=== PATIENT | male | born 1940 | race Caucasian/White ===

== ENCOUNTER 2018-04-22 08:08 | Day surgery (SDC) | payer MEDICARE, BC ==
[~2018-04-22 08:08] MED LIST: Lactated Ringers 1,000 ML IV SCH; Propofol 200 MG/20 ML SDV ONE; Sodium Chloride 0.9% 5 ML Syringe FLUSH PRN; fentaNYL 100 MCG/2 ML SDV ONE
[2018-04-22] MEDS ORDERED: EPINEPHrine 1:10,000 1 MG/10 ML Syringe ONE (08:12)
[2018-04-22] MEDS ORDERED: fentaNYL 100 MCG/2 ML SDV IV ONE (09:22)
[2018-04-22] MEDS ORDERED: Propofol 200 MG/20 ML SDV IV ONE (09:22)
--- NOTE | 2018-04-22 09:44 | PCM.OPNOTE ---
- General Post-Op/Procedure Note Date of Surgery/Procedure: 04/22/18 Operative Procedure(s): Upper gastrointestinal endoscopy Pre Op Diagnosis: Moderately large hiatal hernia without reflux esophagitis is noted. Mild duodenitis is noted. Anesthesia Technique: MAC Primary Surgeon: Gogo Vann Complications: None Condition: Good Free Text/Narrative:: INFORMED CONSENT: Patient is here today for elective upper GI endoscopy. All aspects of this procedure have been discussed with the patient. All possible complications also, including possibility of perforation, infection, pain, bleeding, numbness of the throat, swallowing difficulty and unknown complications. In the event of perforation the patient may need surgical exploration to repair the defect. The patient understands fully well. Patient did not have any further questions for me at the end of my interview. The patient wishes for me to proceed. INSTRUMENT USED: Video gastroscope ANESTHESIA: [[facility]] ASA CLASSIFICATION: [2] PROCEDURE PERFORMED: [Upper gastrointestinal endoscopy] PHARYNX: Normal. ESOPHAGUS: Normal. Proximal: Normal. Middle: Normal. Lower: Normal. GE Junction: Moderate-sized hiatal hernia. STOMACH: Normal. Cardia: Normal. Fundus: Normal. Lesser Curvature: Normal. Greater Curvature: Normal. Antrum: Normal. Pylorus: Normal. DUODENUM: Normal. First Part: Mild duodenitis. Second Part: Normal. Third Part: Normal. RETROFLEXION: Normal. BIOPSY: None. TOLERANCE: Excellent. COMPLICATIONS: None.
== END 2018-04-22 11:57 | disposition home or self-care (01) ==
LOC: KA.SDS 08:08
PROVIDERS: ATTEND Family Medicine
DX: K29.80 Duodenitis without bleeding (principal); K44.9 Diaphragmatic hernia without obstruction or gangrene; I10 Essential (primary) hypertension; E78.5 Hyperlipidemia, unspecified; D64.9 Anemia, unspecified; Z79.82 Long term (current) use of aspirin; Z79.899 Other long term (current) drug therapy
CPT/HCPCS: 00731; J2704; J3010; J7120

== ENCOUNTER 2020-09-06 16:20 | Emergency (ER) | payer MEDICARE, BC ==
[2020-09-06 17:09] VITALS: BP 138/80; PULSE 71
--- NOTE | 2020-09-06 17:15 | EDM.PDOC ---
ED HPI GENERAL MEDICAL PROBLEM - General Chief Complaint: General Stated Complaint: RADICULAPATHY/ARM/NECK PX Time Seen by Provider: 09/06/20 17:04 Source of Information: Reports: Patient History Limitations: Reports: No Limitations - History of Present Illness INITIAL COMMENTS - FREE TEXT/NARRATIVE: Patient presents with pain in left shoulder and neck for the past 6 weeks. To day he went to the chiropractor and after his treatment the pain was worse so came to ER. The pain has mainly been present when sitting in a car and driving but now is more than that. Denies injury. Left Shoulder Pain Score (Numeric/FACES): 9 - Related Data Allergies Allergy/AdvReac Type Severity Reaction Status Date / Time No Known Drug Allergies Allergy NKDA Verified 09/06/20 16:34 Home Meds: Home Meds Acetaminophen [Tylenol Extra Strength] 1,000 mg PO BID 04/21/18 [History] Finasteride 5 mg PO DAILY 04/21/18 [History] Ibuprofen 200 - 400 mg PO DAILY PRN 04/21/18 [History] Multivitamin [Multivitamins] 1 cap PO DAILY 04/21/18 [History] Simvastatin [Zocor] 20 mg PO DAILY 04/21/18 [History] Tamsulosin [Tamsulosin 24 Hr] 0.4 mg PO DAILY 04/21/18 [History] Past Medical History HEENT History: Reports: Cataract Cardiovascular History: Reports: SOB on Exertion Respiratory History: Reports: Other (See Below) Other Respiratory History: Single episode of bronchitis years ago. Gastrointestinal History: Reports: Diverticulosis, Pancreatitis Genitourinary History: Reports: Prostate Disorder Other Genitourinary History: enlarged prostate Musculoskeletal History: Reports: None Neurological History: Reports: None Psychiatric History: Reports: None Endocrine/Metabolic History: Reports: None Hematologic History: Reports: None Immunologic History: Reports: None Oncologic (Cancer) History: Reports: None Dermatologic History: Reports: None - Infectious Disease History Infectious Disease History: Reports: Measles, Mumps - Past Surgical History Head Surgeries/Procedures: Reports: None HEENT Surgical History: Reports: Cataract Surgery Cardiovascular Surgical History: Reports: None Respiratory Surgical History: Reports: None GI Surgical History: Reports: Cholecystectomy Male Surgical History: Reports: None Endocrine Surgical History: Reports: None Neurological Surgical History: Reports: None Musculoskeletal Surgical History: Reports: None Oncologic Surgical History: Reports: None Dermatological Surgical History: Reports: None Social & Family History - Family History HEENT: Reports: None Cardiac: Reports: Heart Failure Respiratory: Reports: None GI: Reports: None Neurological: Reports: Dementia Oncologic: Reports: Prostate, Other (See Below) Other Oncologic Family History: Penile - Brother - Tobacco Use Tobacco Use Status *Q: Never Tobacco User - Caffeine Use Caffeine Use: Reports: Coffee - Recreational Drug Use Recreational Drug Use: No ED ROS GENERAL - Review of Systems Review Of Systems: See Below Constitutional: Denies: Fever, Chills, Weakness HEENT: Reports: No Symptoms Respiratory: Denies: Shortness of Breath, Cough Cardiovascular: Denies: Chest Pain, Lightheadedness, Syncope GI/Abdominal: Reports: No Symptoms : Reports: No Symptoms Musculoskeletal: Reports: Neck Pain, Shoulder Pain, Arm Pain. Denies: Back Pain, Hand Pain, Leg Pain Skin: Reports: No Symptoms Neurological: Reports: Numbness (left fingertips for a year). Denies: Confusion, Dizziness, Headache, Seizure, Syncope, Trouble Speaking, Difficulty Walking Psychiatric: Denies: Agitation, Anxiety, Confusion ED EXAM, GENERAL - Physical Exam Exam: See Below Exam Limited By: No Limitations General Appearance: Alert, WD/WN, No Apparent Distress Eye Exam: Bilateral Eye: EOMI, Normal Inspection, PERRL Ears: Normal External Exam, Hearing Grossly Normal Nose: Normal Inspection, No Blood Throat/Mouth: Normal Inspection, Normal Lips, Normal Voice, No Airway Compromise Head: Atraumatic, Normocephalic Neck: Limited Range of Motion, Tender Lateral, Tender Midline Respiratory/Chest: No Respiratory Distress, Lungs Clear, Normal Breath Sounds, No Accessory Muscle Use Cardiovascular: Regular Rate, Rhythm, No Murmur Back Exam: Normal Inspection Extremities: Normal Range of Motion, Normal Capillary Refill, Other (Palpation and ROM doesn't reproduce pain and is well tolerated. When patient sat on edge of bed and stood up the pain became strong from shoulder to neck from pushing up off the bed.) Neurological: Alert, Oriented, Normal Cognition, No Motor/Sensory Deficits Psychiatric: Normal Affect, Normal Mood Skin Exam: Warm, Dry, Intact, Normal Color, No Rash Course - Vital Signs Last Recorded V/S: Last Vital Signs Temp 97.9 F 09/06/20 16:24 Pulse 65 09/06/20 16:24 Resp 19 09/06/20 16:24 BP 157/90 H 09/06/20 16:24 Pulse Ox 98 09/06/20 16:24 - Orders/Labs/Meds Orders: Active Orders 24 hr Category Date Time Status Shoulder Comp Lt [CR] Stat Exams 09/06/20 16:40 Ordered - Re-Assessments/Exams Free Text/Narrative Re-Assessment/Exam: 09/06/20 17:51 Xrays show significant arthritic changes in C-spine and left shoulder. No acute pathology evident. Patient occasionally takes Ibuprofen 400 mg and is not aware of any kidney disease. I advised taking the ibuprofen 2-3 times a day for just a few days and then follow up with PCP or Ortho for further evaluation and treatment options. He had an MRI of neck about 6 months ago he says that showed arthritis. When he got up to leave he didn't have the pain when pushing himself up from the bed like earlier. He says it feels better. Discharged to home in stable condition. Departure - Departure Time of Disposition: 17:49 Disposition: Home, Self-Care 01 Condition: Good Clinical Impression: Osteoarthritis cervical spine Qualifiers: Spinal osteoarthritis complication: unspecified spinal osteoarthritis Qualified Code(s): M47.812 - Spondylosis without myelopathy or radiculopathy, cervical re gion Osteoarthritis of shoulder Qualifiers: Osteoarthritis type: unspecified Laterality: left Qualified Code(s): M19.012 - Primary osteoarthritis, left shoulder - Discharge Information Instructions: Arthritis, [id number] Referrals: Gogo Vann MD [Primary Care Provider] - Additional Instructions: Drink 8 cups of water daily. Take Ibuprofen 400 mg 2-3 times a day for a few days to see if it helps significantly. Follow up with your PCP or orthopedic doctor in a few days for further evaluation. Sepsis Event Note (ED) - Evaluation Sepsis Screening Result: No Definite Risk - Focused Exam Vital Signs: Vital Signs Temp Pulse Resp BP Pulse Ox 09/06/20 16:24 97.9 F 65 19 157/90 H 98 - My Orders Last 24 Hours: My Active Orders 09/06/20 16:40 Shoulder Comp Lt [CR] Stat - Assessment/Plan Last 24 Hours: My Active Orders 09/06/20 16:40 Shoulder Comp Lt [CR] Stat
--- NOTE | 2020-09-06 17:16 | CR ---
[id number] RAD/RAD Shoulder Left 2V Min EXAM: 3 VIEWS LEFT SHOULDER. INDICATION: PAIN. COMPARISON: None. DISCUSSION: No fracture, dislocation or other acute osseous abnormality. Mild degenerative changes of the left acromioclavicular and glenohumeral joints. IMPRESSION: 1. No acute osseous abnormalities. Chronic changes as above. Wallace Jaramillo DO 09/06/20 1322 Thank you for allowing us to participate in the care of your patient.
--- NOTE | 2020-09-06 17:44 | CR ---
[id number] RAD/RAD Cervical Spine 2-3V EXAM: 2 VIEWS CERVICAL SPINE. INDICATION: PAIN IN NECK AND LEFT SHOULDER/ARM. COMPARISON: None. DISCUSSION: Limited evaluation with AP and lateral views of the cervical spine. The vertebral bodies are normal in height without definite fracture or suspicious osseous lesion seen. 3 mm anterolisthesis of C4 over C5. The prevertebral soft tissues are normal in thickness. Mild multilevel degenerative changes of the cervical spine. Findings are most pronounced at C4-C5 IMPRESSION: 1. When allowing for limitations, no definite acute fracture or dislocation. Wallace Jaramillo DO 09/06/20 1743 Thank you for allowing us to participate in the care of your patient.
== END 2020-09-06 17:55 | disposition home or self-care (01) ==
LOC: KA.ED 16:20
DX: M47.812 Spondylosis without myelopathy or radiculopathy, cervical region (principal); M19.012 Primary osteoarthritis, left shoulder
CPT/HCPCS: 72040; 73030-LT; 99283-25; 99284

== ENCOUNTER 2021-01-13 10:55 | Emergency (ER) | payer MEDICARE, OTHER ==
[2021-01-13] MEDS ORDERED: ALPRAZolam 0.25 MG Tab PO ONE (11:35)
--- NOTE | 2021-01-13 11:49 | EDM.PDOCBH ---
ED HPI GENERAL MEDICAL PROBLEM - General Chief Complaint: Behavioral/Psych Stated Complaint: DIZZY, ANXIETY?? Time Seen by Provider: 01/13/21 11:10 Source of Information: Reports: Patient, Family () History Limitations: Reports: No Limitations - History of Present Illness INITIAL COMMENTS - FREE TEXT/NARRATIVE: 80-year-old male presents to the emergency room accompanied with his with complaints of feeling restless and generalized anxiety. He feels the symptoms have come on gradually over last a couple of days. He had difficulty sleeping at night last night. He feels that this was started due to his recent health and medical findings. He was scheduled to have a hernia repair in October and upon his physical he was diagnosed with a regular heart rate. Ended up having an echocardiogram that showed he had 2 leaky valves. Also found having low platelets and more recently has had a recent tooth infection. He feels that these findings have caused him to worry. He states that he has had issues in the past with claustrophobia. Currently he denies any shortness of breath or chest pain. No headache, no abdominal or musculoskeletal complaints. Again he reports feeling restless and anxious. Onset: Gradual Onset Date: 01/12/21 Duration: Hour(s):, Recurring Location: Reports: Generalized Severity: Moderate Improves with: Reports: None Worsens with: Reports: None Associated Symptoms: Reports: No Other Symptoms - Related Data Allergies Allergy/AdvReac Type Severity Reaction Status Date / Time No Known Drug Allergies Allergy NKDA Verified 01/13/21 11:04 Home Meds: Home Meds Acetaminophen [Tylenol Extra Strength] 1,000 mg PO BID 04/21/18 [History] Finasteride 5 mg PO DAILY 04/21/18 [History] Multivitamin [Multivitamins] 1 cap PO DAILY 04/21/18 [History] Simvastatin [Zocor] 20 mg PO DAILY 04/21/18 [History] Tamsulosin [Tamsulosin 24 Hr] 0.4 mg PO DAILY 04/21/18 [History] ALPRAZolam [Xanax] 0.25 mg PO TID PRN #15 tablet 01/13/21 [Rx] Cholecalciferol (Vitamin D3) [Vitamin D3] 1,000 unit PO DAILY 01/13/21 [History] Cyanocobalamin (Vitamin B12) [Vitamin B12] 1,000 mcg PO DAILY 01/13/21 [History] Ferrous Sulfate [Iron] 325 mg PO DAILY 01/13/21 [History] Past Medical History HEENT History: Reports: Cataract Cardiovascular History: Reports: High Cholesterol, Other (See Below) Other Cardiovascular History: irreg heart beat. needs heart valve repaired Respiratory History: Reports: Other (See Below) Other Respiratory History: Single episode of bronchitis years ago. Gastrointestinal History: Reports: Diverticulosis, Hiatal Hernia, Pancreatitis Other Gastrointestinal History: hernia Genitourinary History: Reports: Prostate Disorder Other Genitourinary History: enlarged prostate Musculoskeletal History: Reports: Arthritis, Neck Pain, Chronic Neurological History: Reports: None Psychiatric History: Reports: Anxiety Endocrine/Metabolic History: Reports: None Hematologic History: Reports: None Immunologic History: Reports: None Oncologic (Cancer) History: Reports: None Dermatologic History: Reports: None - Infectious Disease History Infectious Disease History: Reports: Measles - Past Surgical History Head Surgeries/Procedures: Reports: None HEENT Surgical History: Reports: Cataract Surgery Cardiovascular Surgical History: Reports: None Respiratory Surgical History: Reports: None GI Surgical History: Reports: Cholecystectomy Endocrine Surgical History: Reports: None Neurological Surgical History: Reports: None Musculoskeletal Surgical History: Reports: None Oncologic Surgical History: Reports: None Dermatological Surgical History: Reports: None Social & Family History - Family History HEENT: Reports: None Cardiac: Reports: Heart Failure Respiratory: Reports: None GI: Reports: None Neurological: Reports: Dementia Oncologic: Reports: Prostate, Other (See Below) Other Oncologic Family History: Penile - Brother - Tobacco Use Tobacco Use Status *Q: Never Tobacco User - Caffeine Use Caffeine Use: Reports: Coffee - Recreational Drug Use Recreational Drug Use: No ED ROS GENERAL - Review of Systems Review Of Systems: See Below Constitutional: Reports: No Symptoms HEENT: Reports: No Symptoms Respiratory: Reports: No Symptoms Cardiovascular: Reports: No Symptoms Endocrine: Reports: No Symptoms GI/Abdominal: Reports: No Symptoms : Reports: No Symptoms Musculoskeletal: Reports: No Symptoms Skin: Reports: No Symptoms Neurological: Reports: No Symptoms Psychiatric: Reports: Anxiety Hematologic/Lymphatic: Reports: No Symptoms Immunologic: Reports: No Symptoms ED EXAM, BEHAVIORAL HEALTH - Physical Exam Exam: See Below Exam Limited By: No Limitations General Appearance: Alert, WD/WN, No Apparent Distress, Anxious Eye Exam: Bilateral Eye: EOMI Ears: Hearing Grossly Normal Nose: Normal Inspection Throat/Mouth: Normal Inspection, Normal Voice, No Airway Compromise Head: Atraumatic, Normocephalic Neck: Normal Inspection, Supple, Non-Tender Respiratory/Chest: No Respiratory Distress, Lungs Clear, Normal Breath Sounds Cardiovascular: No Edema, No JVD, Irregularly Irregular GI/Abdominal: Soft, Non-Tender Back Exam: Normal Inspection, Other (Kyphosis) Extremities: Normal Inspection, Normal Range of Motion Neurological: Alert, Normal Cognition, Normal Gait, No Motor/Sensory Deficits, Oriented x 3 Psychiatric: Alert, Depressed Mood, Restless. No: Agitated Skin Exam: Warm, Dry, Intact, Normal color, No rash COURSE, BEHAVIORAL HEALTH COMP - Course Vital Signs: Last Vital Signs Temp 98.5 F 01/13/21 11:07 Pulse 67 01/13/21 11:07 Resp 18 01/13/21 11:07 BP 103/69 01/13/21 11:07 Pulse Ox 96 01/13/21 11:07 Orders, Labs, Meds: Medications Discontinued Medications Generic Name Dose Route Start Last Admin Trade Name Freq PRN Reason Stop Dose Admin Alprazolam 0.5 mg 01/13/21 11:35 01/13/21 11:38 Alprazolam 0.25 Mg Tab PO 01/13/21 11:36 0.5 mg ONETIME ONE Administration Re-Assessment/Re-Exam: Patient is a pleasant cooperative throughout examination he is little bit restless. He has a difficult time just sitting. He expresses worry some due to his recent medical conditions as discussed in his history. He feels he is becoming more anxious, he does complain of some claustrophobic issues that have been throughout his life. Departure - Departure Time of Disposition: 11:50 Disposition: Home, Self-Care 01 Condition: Good Clinical Impression: Anxiety - Discharge Information Prescriptions: ALPRAZolam [Xanax] 0.25 mg PO TID PRN #15 tablet PRN Reason: Anxiety Instructions: Panic Attack, [id number], Managing Anxiety, Adult Referrals: Gogo Vann MD [Primary Care Provider] - Forms: ED Department Discharge Care Plan Goals: 1. Xanax 0.25 mg every 8 hours as needed for anxiety dispense 15 to [facility]. 2. Up with your primary care next week for your anxiety. 3. Turn to the emergency room if you feel your symptoms have changed and began experiencing any increased shortness of breath, chest pain, arm or neck pain. Sepsis Event Note (ED) - Evaluation Sepsis Screening Result: No Definite Risk - Focused Exam Vital Signs: Vital Signs Temp Pulse Resp BP Pulse Ox 01/13/21 11:07 98.5 F 67 18 103/69 96 - Problem List Review Problem List Initiated/Reviewed/Updated: Yes - Assessment/Plan Assessment:: Generalized anxiety Plan: 1. Xanax 0.25 mg every 8 hours as needed for anxiety dispense 15 to [facility]. 2. Up with your primary care next week for your anxiety. 3. Turn to the emergency room if you feel your symptoms have changed and began experiencing any increased shortness of breath, chest pain, arm or neck pain.
== END 2021-01-13 11:48 | disposition home or self-care (01) ==
LOC: KA.ED 10:55
DX: F41.1 Generalized anxiety disorder (principal); E78.00 Pure hypercholesterolemia, unspecified; N42.9 Disorder of prostate, unspecified; Z79.899 Other long term (current) drug therapy
CPT/HCPCS: 99283; 99284; A9270-GY

== ENCOUNTER 2021-01-28 09:59 | Emergency (ER) | payer MEDICARE, OTHER ==
--- NOTE | 2021-01-28 11:13 | EDM.PDOC ---
ED HPI GENERAL MEDICAL PROBLEM - General Chief Complaint: Gastrointestinal Problem Stated Complaint: CONSTIPATED Time Seen by Provider: 01/28/21 10:11 Source of Information: Reports: Patient, Significant Other History Limitations: Reports: No Limitations - History of Present Illness INITIAL COMMENTS - FREE TEXT/NARRATIVE: Patient presents with constipation. His last bowel movement was 3 days ago after taking Dulcolax. He has been managing less regular bowel movements for about the last 6 months but usually goes at least every day. He uses Metamucil, Miralax and now Dulcolax a couple times. He says Miralax doesn't help him at all. He denies pain at the rectum or in the abdomen. He does sometimes take oxycodone for shoulder pain and had a dose two days ago. He also had IV pain medication that day for a cardiac angiogram. - Related Data Allergies Allergy/AdvReac Type Severity Reaction Status Date / Time No Known Drug Allergies Allergy NKDA Verified 01/28/21 10:15 Home Meds: Home Meds Acetaminophen [Tylenol Extra Strength] 1,000 mg PO BID 04/21/18 [History] Finasteride 5 mg PO DAILY 04/21/18 [History] Multivitamin [Multivitamins] 1 cap PO DAILY 04/21/18 [History] Tamsulosin [Tamsulosin 24 Hr] 0.4 mg PO DAILY 04/21/18 [History] ALPRAZolam [Xanax] 0.25 mg PO TID PRN #15 tablet 01/13/21 [Rx] Cholecalciferol (Vitamin D3) [Vitamin D3] 1,000 unit PO DAILY 01/13/21 [History] Cyanocobalamin (Vitamin B12) [Vitamin B12] 1,000 mcg PO DAILY 01/13/21 [History] Ferrous Sulfate [Iron] 325 mg PO DAILY 01/13/21 [History] Aspirin [Aspirin EC] 81 mg PO DAILY 01/28/21 [History] Clopidogrel Bisulfate [Plavix] 75 mg PO DAILY 01/28/21 [History] Nitroglycerin 0.4 mg SL ASDIRECTED 01/28/21 [History] Rosuvastatin [Crestor] 20 mg PO DAILY 01/28/21 [History] Vitamin B Complex 1 each PO DAILY 01/28/21 [History] oxyCODONE 5 mg PO BID PRN 01/28/21 [History] Past Medical History HEENT History: Reports: Cataract Cardiovascular History: Reports: High Cholesterol, Stents, Other (See Below) Other Cardiovascular History: irreg heart beat. needs heart valve repaired Respiratory History: Reports: Other (See Below) Other Respiratory History: Single episode of bronchitis years ago. Gastrointestinal History: Reports: Diverticulosis, Hiatal Hernia, Pancreatitis Other Gastrointestinal History: hernia Genitourinary History: Reports: Prostate Disorder Other Genitourinary History: enlarged prostate Musculoskeletal History: Reports: Arthritis, Neck Pain, Chronic Neurological History: Reports: None Psychiatric History: Reports: Anxiety Endocrine/Metabolic History: Reports: None Hematologic History: Reports: Iron Deficiency Immunologic History: Reports: None Oncologic (Cancer) History: Reports: None Dermatologic History: Reports: None - Infectious Disease History Infectious Disease History: Reports: Measles - Past Surgical History Head Surgeries/Procedures: Reports: None HEENT Surgical History: Reports: Cataract Surgery Cardiovascular Surgical History: Reports: None Respiratory Surgical History: Reports: None GI Surgical History: Reports: Cholecystectomy Male Surgical History: Reports: None Endocrine Surgical History: Reports: None Neurological Surgical History: Reports: None Musculoskeletal Surgical History: Reports: None Oncologic Surgical History: Reports: None Dermatological Surgical History: Reports: None Social & Family History - Family History HEENT: Reports: None Cardiac: Reports: Heart Failure Respiratory: Reports: None GI: Reports: None Neurological: Reports: Dementia Oncologic: Reports: Prostate, Other (See Below) Other Oncologic Family History: Penile - Brother - Tobacco Use Tobacco Use Status *Q: Never Tobacco User Second Hand Smoke Exposure: No - Caffeine Use Caffeine Use: Reports: Coffee - Recreational Drug Use Recreational Drug Use: No ED ROS GENERAL - Review of Systems Review Of Systems: See Below Constitutional: Denies: Fever, Chills, Malaise, Weakness HEENT: Reports: No Symptoms Respiratory: Denies: Shortness of Breath, Cough Cardiovascular: Denies: Chest Pain, Lightheadedness, Syncope GI/Abdominal: Reports: Constipation. Denies: Abdominal Pain, Vomiting : Denies: Dysuria, Flank Pain Musculoskeletal: Reports: Shoulder Pain (chronic) Skin: Denies: Cyanosis, Jaundice, Mottled, Pallor, Diaphoresis Neurological: Denies: Confusion, Dizziness, Headache, Seizure, Syncope, Trouble Speaking, Difficulty Walking Psychiatric: Denies: Agitation, Anxiety, Confusion ED EXAM, GI/ABD - Physical Exam Exam: See Below Exam Limited By: No Limitations General Appearance: Alert, WD/WN, No Apparent Distress Eyes: Bilateral: Normal Appearance, EOMI Ears: Normal External Exam, Hearing Grossly Normal Nose: Normal Inspection, No Blood Throat/Mouth: Normal Inspection, Normal Lips, Normal Voice, No Airway Compromise Head: Atraumatic, Normocephalic Neck: Normal Inspection, Full Range of Motion Respiratory/Chest: No Respiratory Distress, Lungs Clear, Normal Breath Sounds, No Accessory Muscle Use Cardiovascular: Regular Rate, Rhythm, No Murmur GI/Abdominal Exam: Normal Bowel Sounds, Soft, Non-Tender, No Organomegaly, No Distention, No Abnormal Bruit, No Mass. No: Distended, Guarding, Rigid Rectal (Males) Exam: Deferred (he doesn't feel like anything is sitting in the rectum) Back Exam: Normal Inspection, Full Range of Motion Extremities: Normal Inspection, Normal Range of Motion Neurological: Alert, Oriented, Normal Cognition, No Motor/Sensory Deficits Psychiatric: Normal Affect, Normal Mood Skin Exam: Warm, Dry, Intact, Normal Color, No Rash Course - Vital Signs Last Recorded V/S: Last Vital Signs Temp 98.6 F 01/28/21 10:00 Pulse 63 01/28/21 10:22 Resp 16 01/28/21 10:00 BP 132/66 01/28/21 10:22 Pulse Ox 96 01/28/21 10:00 - Re-Assessments/Exams Free Text/Narrative Re-Assessment/Exam: 01/28/21 11:37 Discussed findings and treatment options including Magnesium Citrate and Milk of Magnesia. They will try the Mag Citrate and I cautioned them that if he finds he is needing to use it more often than twice a month he should see his doctor for alternative options. I also encouraged water intake. Discharged to home in stable condition. Departure - Departure Time of Disposition: 10:59 Disposition: Home, Self-Care 01 Condition: Good Clinical Impression: Constipation Qualifiers: Constipation type: unspecified constipation type Qualified Code(s): K59.00 - Constipation, unspecified - Discharge Information Instructions: Constipation, Adult, [id number] Referrals: Gogo Vann MD [Primary Care Provider] - Additional Instructions: Drink 8 cups of water daily. 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 This will take a few hours to work completely. If you find you are needing to use Magnesium Citrate more often than twice a month follow up with your doctor for other treatment options. Continue your metamucil as directed by your PCP. Return to ER as needed. Sepsis Event Note (ED) - Evaluation Sepsis Screening Result: No Definite Risk - Focused Exam Vital Signs: Vital Signs Temp Pulse Resp BP Pulse Ox 01/28/21 10:22 63 132/66 01/28/21 10:00 98.6 F 67 16 166/84 H 96
== END 2021-01-28 11:30 | disposition home or self-care (01) ==
LOC: KA.ED 09:59
DX: K59.00 Constipation, unspecified (principal); E78.00 Pure hypercholesterolemia, unspecified; Z95.5 Presence of coronary angioplasty implant and graft; Z79.82 Long term (current) use of aspirin; Z79.02 Long term (current) use of antithrombotics/antiplatelets; Z79.899 Other long term (current) drug therapy
CPT/HCPCS: 99283

== ENCOUNTER 2021-02-05 07:32 | Emergency (ER) | payer MEDICARE, OTHER ==
--- NOTE | 2021-02-05 08:29 | EDM.PDOC ---
ED HPI GENERAL MEDICAL PROBLEM - General Chief Complaint: Abdominal Pain Stated Complaint: ABD PAIN Time Seen by Provider: 02/05/21 08:16 Source of Information: Reports: Patient, Significant Other History Limitations: Reports: No Limitations - History of Present Illness INITIAL COMMENTS - FREE TEXT/NARRATIVE: Patient presents with constipation. He was here 8 days ago with same problem and has used Mag Citrate, which produced results within 2 hours that day. Since then he has not passed stool without "pushing". Three days ago he took Senna and Milk of Magnesia and passed stool the next day and yesterday (the past 2 days in a row). He isn't producing as much gas as normal. He doesn't feel like there is a fecal impaction at the rectum but is okay with being checked for it. Denies nausea/vomiting. Has been off his oxycodone for about two weeks now which should be helping this. Abdominal Pain Pain Score (Numeric/FACES): 8 - Related Data Allergies Allergy/AdvReac Type Severity Reaction Status Date / Time No Known Drug Allergies Allergy NKDA Verified 02/05/21 07:48 Home Meds: Home Meds Acetaminophen [Tylenol Extra Strength] 1,000 mg PO BID 04/21/18 [History] Finasteride 5 mg PO DAILY 04/21/18 [History] Multivitamin [Multivitamins] 1 cap PO DAILY 04/21/18 [History] Tamsulosin [Tamsulosin 24 Hr] 0.4 mg PO DAILY 04/21/18 [History] ALPRAZolam [Xanax] 0.25 mg PO TID PRN #15 tablet 01/13/21 [Rx] Cholecalciferol (Vitamin D3) [Vitamin D3] 1,000 unit PO DAILY 01/13/21 [History] Cyanocobalamin (Vitamin B12) [Vitamin B12] 1,000 mcg PO DAILY 01/13/21 [History] Ferrous Sulfate [Iron] 325 mg PO DAILY 01/13/21 [History] Aspirin [Aspirin EC] 81 mg PO DAILY 01/28/21 [History] Clopidogrel Bisulfate [Plavix] 75 mg PO DAILY 01/28/21 [History] Nitroglycerin 0.4 mg SL ASDIRECTED PRN 01/28/21 [History] Rosuvastatin [Crestor] 20 mg PO DAILY 01/28/21 [History] Vitamin B Complex 1 each PO DAILY 01/28/21 [History] oxyCODONE 5 mg PO BID PRN 01/28/21 [History] Omeprazole 20 mg PO DAILY 02/05/21 [History] Past Medical History HEENT History: Reports: Cataract Cardiovascular History: Reports: High Cholesterol, Stents, Other (See Below) Other Cardiovascular History: irreg heart beat. needs heart valve repaired scheduled for February 13, 2021 Respiratory History: Reports: Other (See Below) Other Respiratory History: Single episode of bronchitis years ago. Gastrointestinal History: Reports: Diverticulosis, Hiatal Hernia, Pancreatitis, Other (See Below) Other Gastrointestinal History: hernia, constipation Genitourinary History: Reports: Prostate Disorder Other Genitourinary History: enlarged prostate Musculoskeletal History: Reports: Arthritis, Neck Pain, Chronic Neurological History: Reports: None Psychiatric History: Reports: Anxiety Endocrine/Metabolic History: Reports: None Hematologic History: Reports: Iron Deficiency Immunologic History: Reports: None Oncologic (Cancer) History: Reports: None Dermatologic History: Reports: None - Infectious Disease History Infectious Disease History: Reports: Measles - Past Surgical History Head Surgeries/Procedures: Reports: None HEENT Surgical History: Reports: Cataract Surgery Cardiovascular Surgical History: Reports: Coronary Artery Stent, Other (See Below) Other Cardiovascular Surgeries/Procedures: [address] Respiratory Surgical History: Reports: None GI Surgical History: Reports: Cholecystectomy Male Surgical History: Reports: None Endocrine Surgical History: Reports: None Neurological Surgical History: Reports: None Musculoskeletal Surgical History: Reports: None Oncologic Surgical History: Reports: None Dermatological Surgical History: Reports: None Social & Family History - Family History HEENT: Reports: None Cardiac: Reports: Heart Failure Respiratory: Reports: None GI: Reports: None Neurological: Reports: Dementia Oncologic: Reports: Prostate, Other (See Below) Other Oncologic Family History: Penile - Brother - Tobacco Use Tobacco Use Status *Q: Never Tobacco User Second Hand Smoke Exposure: No - Caffeine Use Caffeine Use: Reports: Coffee - Recreational Drug Use Recreational Drug Use: No ED ROS GENERAL - Review of Systems Review Of Systems: See Below Constitutional: Denies: Fever, Weakness HEENT: Reports: No Symptoms Respiratory: Reports: No Symptoms Cardiovascular: Reports: No Symptoms GI/Abdominal: Reports: Abdominal Pain (just a little in left groin where his hernia sometimes gets uncomfortable.), Constipation. Denies: Diarrhea, Nausea, Vomiting : Reports: No Symptoms Musculoskeletal: Reports: No Symptoms Skin: Reports: No Symptoms Neurological: Denies: Confusion, Syncope, Trouble Speaking Psychiatric: Reports: No Symptoms ED EXAM, GI/ABD - Physical Exam Exam: See Below Exam Limited By: No Limitations General Appearance: Alert, WD/WN, No Apparent Distress Eyes: Bilateral: Normal Appearance, EOMI Ears: Normal External Exam, Hearing Grossly Normal Nose: Normal Inspection, No Blood Throat/Mouth: Normal Inspection, Normal Voice, No Airway Compromise Head: Atraumatic, Normocephalic Neck: Normal Inspection, Full Range of Motion Respiratory/Chest: No Respiratory Distress, Lungs Clear, Normal Breath Sounds Cardiovascular: Regular Rate, Rhythm, No Murmur GI/Abdominal Exam: Normal Bowel Sounds, Soft, Tender (low abdomen and left groin. A large left inguinal hernia is palpable and tender. I am unable to reduce it.) Rectal (Males) Exam: Normal Exam, Normal Rectal Tone, Prostate Nodule (likely right prostate nodule; patient gets his annual checkups and PSA is good each year.). No: Black Stool, Fecal Impaction Back Exam: Normal Inspection, Full Range of Motion Extremities: Normal Inspection, Normal Range of Motion Neurological: Alert, Oriented, Normal Cognition, No Motor/Sensory Deficits Psychiatric: Normal Affect, Normal Mood Skin Exam: Warm, Dry, Intact, Normal Color, No Rash Course - Vital Signs Last Recorded V/S: Last Vital Signs Temp 98.4 F 02/05/21 09:34 Pulse 67 02/05/21 09:34 Resp 20 02/05/21 09:34 BP 143/80 H 02/05/21 09:34 Pulse Ox 98 02/05/21 09:34 - Orders/Labs/Meds Labs: Laboratory Tests 02/05/21 02/05/21 Range/Units 08:45 08:45 WBC 5.69 (5.00-10.00) 10^3/uL RBC 4.66 (4.50-6.00) 10^6/uL Hgb 14.5 (13.0-17.0) g/dL Hct 42.7 (40.0-52.0) % MCV 91.6 (82.0-92.0) fL MCH 31.1 H (27.0-31.0) pg MCHC 34.0 (32.0-36.0) g/dL RDW 13.2 (11.5-14.5) % Plt Count 130 L (150-400) 10^3/uL MPV 9.2 (7.4-10.4) fL Immature Gran % (Auto) 0.2 (0.0-5.0) % Neut % (Auto) 76.4 H (50.0-70.0) % Lymph % (Auto) 12.1 L (20.0-40.0) % Bowman % (Auto) 9.5 H (2.0-8.0) % Eos % (Auto) 1.6 (1.0-3.0) % Baso % (Auto) 0.2 (0.0-1.0) % Neut # (Auto) 4.35 (2.50-7.00) 10^3/uL Lymph # (Auto) 0.69 L (1.00-4.00) 10^3/uL Bowman # (Auto) 0.54 (0.10-0.80) 10^3/uL Eos # (Auto) 0.09 L (0.10-0.30) 10^3/uL Baso # (Auto) 0.01 (0.00-0.10) 10^3/uL Immature Gran # (Auto) 0.01 (0.00-0.50) 10^3/uL Sodium 142 (136-145) mmol/L Potassium 4.3 (3.5-5.1) mmol/L Chloride 106 (98-107) mmol/L Carbon Dioxide 27.4 (21.0-32.0) mmol/L Anion Gap 12.9 (5-15) mmol/L BUN 13 (7-18) mg/dL Creatinine 0.98 (0.51-1.17) mg/dL Est Cr Clr Drug Dosing 50.34 mL/min Estimated GFR (MDRD) > 60 mL/min Glucose 99 (70-140) mg/dL Calcium 9.1 (8.7-10.3) mg/dL Total Bilirubin 1.5 H (0.2-1.0) mg/dL AST 34 (15-37) U/L ALT 54 (14-63) U/L Alkaline Phosphatase 37 L (46-116) U/L Total Protein 6.2 L (6.4-8.2) g/dL Albumin 3.54 (3.40-5.00) g/dL Meds: Medications Discontinued Medications Generic Name Dose Route Start Last Admin Trade Name Seven PRN Reason Stop Dose Admin Sodium Chloride 50 mls @ 200 mls/min 02/05/21 09:00 02/05/21 09:38 Normal Saline IV 200 mls/min ASDIRECTED CONSUELO Administration Iopamidol 75 ml 02/05/21 08:48 02/05/21 09:38 Iopamidol 755 Mg/Ml 75 Ml Bottle IVPUSH 02/05/21 08:49 75 ml ONETIME ONE Administration - Re-Assessments/Exams Free Text/Narrative Re-Assessment/Exam: 02/05/21 08:44 After the digital rectal exam, we were discussing long-term management of his constipation and that he should follow up with PCP. Then he mentioned that he has been having "excruciating" low abdominal pain that lasts for a minute then lessens or goes away entirely. This started last evening and worsened through the night. He slept in a recliner but didn't actually sleep much. He is concerned about his hernia. He was planning to have it repaired but during the pre-op workup he was found to need surgery on a cardiac valve first which is scheduled for February 13. The hernia repair is anticipated for about a month later. Patient says he usually can reduce the hernia when laying in bed at night but last night he couldn't and he has never had this much pain from it before. 02/05/21 10:30 CT reports "moderate-sized left inguinal hernia containing a loop of sigmoid colon with evidence of incarceration and obstruction." Just a few minutes ago, after the CT, patient passed a large amount of gas and then was able to reduce the hernia. I re-examined and confirmed that the hernia is reduced. Patient reports pain is gone now. Will discuss with surgeon at [facility] now. 02/05/21 11:01 I discussed case with Dr. Barker, surgeon at [facility]. He said that if incarcerated it would definitely be a surgical emergency but since it has evidently reduced and resolved should wait and proceed with the heart procedure on February 13 and then make plans for the hernia. He told me to instruct patient to come directly to the ER at [facility] if the hernia becomes "stuck" again like it was today. He doesn't want the delay of going to [place] first and definitely wants him in [place] where cardiology can be involved. I discussed these plans in detail with patient and his and he is discharged to home in stable condition. Departure - Departure Time of Disposition: 10:55 Disposition: Home, Self-Care 01 Condition: Good Clinical Impression: Lower abdominal pain, Inguinal hernia, left Constipation Qualifiers: Constipation type: unspecified constipation type Qualified Code(s): K59.00 - Constipation, unspecified - Discharge Information Referrals: Gogo Vann MD [Primary Care Provider] - Forms: ED Department Discharge Additional Instructions: Drink 8 cups of water daily. Try to eat whole grain foods, fresh fruits and vegetables as much as possible to decrease constipation. You can use your Senna morning and night as discussed as well as Milk of Magnesia if needed. Make sure you can reduce the hernia a few times throughout the day. If it becomes "stuck" like it was today, you should go to the ER at [facility]) right away, as we discussed. Sepsis Event Note (ED) - Evaluation Sepsis Screening Result: No Definite Risk - Focused Exam Vital Signs: Vital Signs Temp Pulse Resp BP Pulse Ox 02/05/21 09:34 98.4 F 67 20 143/80 H 98 02/05/21 08:00 61 20 135/86 97 02/05/21 07:53 98.9 F 63 18 145/86 H 98
[2021-02-05] MEDS ORDERED: Iopamidol 755 Mg/ML 75 ML Bottle IVPUSH ONE (08:48)
[2021-02-05] MEDS ORDERED: Sodium Chloride 0.9% 50 ML IV SCH (09:00)
[2021-02-05 09:17] LABS: ANION GAP 12.9 mmol/L (5-15); CHLORIDE,CL 106 mmol/L (98-107); SODIUM,NA 142 mmol/L (136-145)
--- NOTE | 2021-02-05 10:10 | CT ---
[id number] CT/CT Abdomen Pelvis W IV EXAM: ABDOMEN AND PELVIS CT WITH CONTRAST INDICATION: Hernia and low abdominal pain. COMPARISON: October 04, 2010. DISCUSSION: There are clips along the internal inguinal ring suggesting previous hernia repair. There is a recurrent moderate sized hernia containing a segment of sigmoid colon. The colon proximal to this is moderately dilated and there is infiltration of the fat within the hernia sac suggesting incarceration with obstruction. Small free fluid in the pelvis. A 22 x 13 mm fluid collection along the right inguinal canal may be from prior right inguinal hernia repair. Multiple bilateral parapelvic renal cysts. 15 mm cortical cyst left kidney. Scattered diverticula of the colon without evidence of diverticulitis. Prior cholecystectomy. Large hiatus hernia containing the majority of the stomach. Cardiomegaly. Volume loss in the left lung base. Indeterminate 5.5 mm noncalcified nodule in the right lung base (image 3 series 2). The liver, pancreas, spleen, adrenal glands small bowel are unremarkable. The appendix is not identified with certainty. Degenerative changes throughout the spine. The osseous structures are otherwise unremarkable. Moderate prostatomegaly. IMPRESSION: 1. There is a moderate-sized left inguinal hernia containing a loop of sigmoid colon with evidence of incarceration and obstruction. Xu Guy MD 02/05/21 [id number] Thank you for allowing us to participate in the care of your patient.
== END 2021-02-05 11:15 | disposition home or self-care (01) ==
LOC: KA.ED 07:32
DX: K59.00 Constipation, unspecified (principal); K40.90 Unilateral inguinal hernia, without obstruction or gangrene, not specified as recurrent; E78.00 Pure hypercholesterolemia, unspecified; Z95.5 Presence of coronary angioplasty implant and graft; Z79.02 Long term (current) use of antithrombotics/antiplatelets; Z79.899 Other long term (current) drug therapy
CPT/HCPCS: 74177; 80053; 85025; 99284; Q9967; 83615

== ENCOUNTER 2021-02-19 16:46 | Emergency (ER) | payer MEDICARE, OTHER ==
--- NOTE | 2021-02-19 17:52 | EDM.PDOC ---
ED HPI GENERAL MEDICAL PROBLEM - General Chief Complaint: Cardiovascular Problem Stated Complaint: SURGICAL SWELLING Time Seen by Provider: 02/19/21 17:39 Source of Information: Reports: Patient, Significant Other History Limitations: Reports: No Limitations - History of Present Illness INITIAL COMMENTS - FREE TEXT/NARRATIVE: Patient presents with swelling and edema of legs. The right leg is more swollen and tender. Six days ago he had a mitral valve repair that was placed through the right groin. He came home from the hospital 3 days ago and has been walking some each day. He is on aspirin and Plavix but no anticoagulants. He denies any pain in chest or dyspnea. - Related Data Allergies Allergy/AdvReac Type Severity Reaction Status Date / Time No Known Drug Allergies Allergy NKDA Verified 02/19/21 17:32 Home Meds: Home Meds Acetaminophen [Tylenol Extra Strength] 1,000 mg PO BID 04/21/18 [History] Finasteride 5 mg PO DAILY 04/21/18 [History] Multivitamin [Multivitamins] 1 cap PO DAILY 04/21/18 [History] Cholecalciferol (Vitamin D3) [Vitamin D3] 1,000 unit PO DAILY 01/13/21 [History] Cyanocobalamin (Vitamin B12) [Vitamin B12] 1,000 mcg PO DAILY 01/13/21 [History] Ferrous Sulfate [Iron] 325 mg PO DAILY 01/13/21 [History] Aspirin [Aspirin EC] 81 mg PO DAILY 01/28/21 [History] Clopidogrel Bisulfate [Plavix] 75 mg PO DAILY 01/28/21 [History] Nitroglycerin 0.4 mg SL ASDIRECTED PRN 01/28/21 [History] Rosuvastatin [Crestor] 20 mg PO DAILY 01/28/21 [History] oxyCODONE 5 mg PO BID PRN 01/28/21 [History] Omeprazole 20 mg PO DAILY 02/05/21 [History] ALPRAZolam [Xanax] 0.25 mg PO Q8H PRN 02/19/21 [History] Amoxicillin 2,000 mg PO ASDIRECTED PRN 02/19/21 [History] Non-Formulary Medication [NF Drug] 1 applic TOP BID PRN 02/19/21 [History] Tamsulosin HCl [Flomax] 0.8 mg PO DAILY 02/19/21 [History] Past Medical History HEENT History: Reports: Cataract Cardiovascular History: Reports: High Cholesterol, Stents, Other (See Below) Other Cardiovascular History: irreg heart beat. needs heart valve repaired scheduled for February 13, 2021 Respiratory History: Reports: Other (See Below) Other Respiratory History: Single episode of bronchitis years ago. Gastrointestinal History: Reports: Diverticulosis, Hiatal Hernia, Pancreatitis, Other (See Below) Other Gastrointestinal History: hernia, constipation Genitourinary History: Reports: Prostate Disorder Other Genitourinary History: enlarged prostate Musculoskeletal History: Reports: Arthritis, Neck Pain, Chronic Neurological History: Reports: None Psychiatric History: Reports: Anxiety Endocrine/Metabolic History: Reports: None Hematologic History: Reports: Iron Deficiency Immunologic History: Reports: None Oncologic (Cancer) History: Reports: None Dermatologic History: Reports: None - Infectious Disease History Infectious Disease History: Reports: Measles - Past Surgical History Head Surgeries/Procedures: Reports: None HEENT Surgical History: Reports: Cataract Surgery Cardiovascular Surgical History: Reports: Coronary Artery Stent, Other (See Below) Other Cardiovascular Surgeries/Procedures: [address] Respiratory Surgical History: Reports: None GI Surgical History: Reports: Cholecystectomy Male Surgical History: Reports: None Endocrine Surgical History: Reports: None Neurological Surgical History: Reports: None Musculoskeletal Surgical History: Reports: None Oncologic Surgical History: Reports: None Dermatological Surgical History: Reports: None Social & Family History - Family History HEENT: Reports: None Cardiac: Reports: Heart Failure Respiratory: Reports: None GI: Reports: None Neurological: Reports: Dementia Oncologic: Reports: Prostate, Other (See Below) Other Oncologic Family History: Penile - Brother - Tobacco Use Tobacco Use Status *Q: Never Tobacco User Second Hand Smoke Exposure: No - Caffeine Use Caffeine Use: Reports: Coffee - Recreational Drug Use Recreational Drug Use: No ED ROS GENERAL - Review of Systems Review Of Systems: See Below Constitutional: Denies: Fever, Chills, Malaise, Weakness HEENT: Denies: Ear Pain, Throat Pain, Vision Change Respiratory: Denies: Shortness of Breath, Cough Cardiovascular: Denies: Chest Pain, Lightheadedness, Syncope GI/Abdominal: Reports: Constipation (often). Denies: Abdominal Pain, Vomiting : Reports: No Symptoms Musculoskeletal: Reports: No Symptoms Skin: Denies: Cyanosis, Jaundice, Mottled, Pallor, Diaphoresis Neurological: Denies: Confusion, Dizziness, Headache, Seizure, Syncope, Trouble Speaking Psychiatric: Denies: Agitation, Anxiety, Confusion ED EXAM, GENERAL - Physical Exam Exam: See Below Exam Limited By: No Limitations General Appearance: Alert, WD/WN, No Apparent Distress Eye Exam: Bilateral Eye: EOMI, Normal Inspection, PERRL Ears: Normal External Exam, Hearing Grossly Normal Nose: Normal Inspection, No Blood Throat/Mouth: Normal Inspection, Normal Lips, Normal Voice, No Airway Compromise Head: Atraumatic, Normocephalic Neck: Normal Inspection, Full Range of Motion Respiratory/Chest: No Respiratory Distress, Lungs Clear, Normal Breath Sounds, No Accessory Muscle Use Cardiovascular: Regular Rate, Rhythm, No Murmur GI/Abdominal: Soft, Non-Tender, No Organomegaly, No Distention Back Exam: Normal Inspection, Full Range of Motion Extremities: Pedal Edema, Slow Capillary Refill, Other (There is ecchymosis on medial and posterior right leg from groin to mid-calf. This area is moderately indurated and tender to palpation. The right leg has significant edema from the hip to the toes. Right mid-calf and medial thigh are tender to squeeze/palpation. Left ankle and foot have edema.). No: Pop's Sign Neurological: Alert, Oriented, Normal Cognition, No Motor/Sensory Deficits Psychiatric: Normal Affect, Normal Mood Skin Exam: Warm, Dry, Intact Course - Vital Signs Last Recorded V/S: Last Vital Signs Temp 98.3 F 02/19/21 16:55 Pulse 68 02/19/21 18:02 Resp 17 02/19/21 18:02 BP 106/56 L 02/19/21 18:02 Pulse Ox 97 02/19/21 18:02 - Orders/Labs/Meds Orders: Active Orders 24 hr Category Date Time Status ALPRAZolam [Xanax] Med 02/19/21 18:16 Once 0.25 mg PO ONETIME ONE Labs: Laboratory Tests 02/19/21 02/19/21 02/19/21 Range/Units 17:20 17:20 17:20 WBC 5.32 (5.00-10.00) 10^3/uL RBC 3.15 L (4.50-6.00) 10^6/uL Hgb 9.9 L D (13.0-17.0) g/dL Hct 29.5 L (40.0-52.0) % MCV 93.7 H (82.0-92.0) fL MCH 31.4 H (27.0-31.0) pg MCHC 33.6 (32.0-36.0) g/dL RDW 14.0 (11.5-14.5) % Plt Count 161 (150-400) 10^3/uL MPV 9.4 (7.4-10.4) fL Immature Gran % (Auto) 0.4 (0.0-5.0) % Neut % (Auto) 72.8 H (50.0-70.0) % Lymph % (Auto) 14.7 L (20.0-40.0) % [place] % (Auto) 10.2 H (2.0-8.0) % Eos % (Auto) 1.5 (1.0-3.0) % Baso % (Auto) 0.4 (0.0-1.0) % Neut # (Auto) 3.88 (2.50-7.00) 10^3/uL Lymph # (Auto) 0.78 L (1.00-4.00) 10^3/uL [place] # (Auto) 0.54 (0.10-0.80) 10^3/uL Eos # (Auto) 0.08 L (0.10-0.30) 10^3/uL Baso # (Auto) 0.02 (0.00-0.10) 10^3/uL Immature Gran # (Auto) 0.02 (0.00-0.50) 10^3/uL D-Dimer, Quantitative 1370 H (<400) ng/mL Sodium 143 (136-145) mmol/L Potassium 3.9 (3.5-5.1) mmol/L Chloride 106 (98-107) mmol/L Carbon Dioxide 29.3 (21.0-32.0) mmol/L Anion Gap 11.6 (5-15) mmol/L BUN 13 (7-18) mg/dL Creatinine 1.05 (0.51-1.17) mg/dL Est Cr Clr Drug Dosing 46.98 mL/min Estimated GFR (MDRD) > 60 mL/min Glucose 103 (70-140) mg/dL Calcium 8.7 (8.7-10.3) mg/dL Total Bilirubin 1.3 H (0.2-1.0) mg/dL AST 23 (15-37) U/L ALT 31 (14-63) U/L Alkaline Phosphatase 31 L (46-116) U/L B-Natriuretic Peptide 53 (0-100) pg/mL Total Protein 5.6 L (6.4-8.2) g/dL Albumin 3.16 L (3.40-5.00) g/dL - Re-Assessments/Exams Free Text/Narrative Re-Assessment/Exam: 02/19/21 18:20 D-dimer is 1370 increasing likelihood of my suspicion of DVT in RLE. Discussed findings and recommendations with patient and they are okay with going to [place] for US and further evaluation and treatment of likely DVT. Patient is stable and continues without any chest pain or dyspnea. He would like a dose of Xanax 0.25 mg for the trip as he uses it occasionally for anxiety. I called [facility] and discussed case with coordinator who relayed info to Dr. Hutson, ER who accepted patient for transfer without further discussion. Departure - Departure Time of Disposition: 18:15 Disposition: DC/Tfer to Acute Hospital 02 Reason for Transfer *Q: Other Condition: Good Clinical Impression: Elevated d-dimer, Swelling of right lower extremity, Suspected DVT (deep vein thrombosis) Referrals: David Espinosa [facility]IC [Primary Care Provider] - Forms: ED Department Discharge Sepsis Event Note (ED) - Evaluation Sepsis Screening Result: No Definite Risk - Focused Exam Vital Signs: Vital Signs Temp Pulse Resp BP Pulse Ox 02/19/21 18:02 68 17 106/56 L 97 02/19/21 16:55 98.3 F 72 14 123/65 97 - My Orders Last 24 Hours: My Active Orders 02/19/21 18:16 ALPRAZolam [Xanax] 0.25 mg PO ONETIME ONE - Assessment/Plan Last 24 Hours: My Active Orders 02/19/21 18:16 ALPRAZolam [Xanax] 0.25 mg PO ONETIME ONE
[2021-02-19 17:53] LABS: ANION GAP 11.6 mmol/L (5-15); CHLORIDE,CL 106 mmol/L (98-107); SODIUM,NA 143 mmol/L (136-145)
[2021-02-19] MEDS ORDERED: ALPRAZolam 0.25 MG Tab PO ONE (18:16)
[2021-02-19] MEDS ORDERED: ALPRAZolam 0.25 MG Tab ONE (18:22)
== END 2021-02-19 18:50 ==
LOC: KA.ED 16:46
DX: M79.89 Other specified soft tissue disorders (principal); R79.89 Other specified abnormal findings of blood chemistry; Z79.82 Long term (current) use of aspirin; Z79.02 Long term (current) use of antithrombotics/antiplatelets; Z95.5 Presence of coronary angioplasty implant and graft
CPT/HCPCS: 36415; 80053; 83880; 85025; 85379; 99284; 99285; A9270-GY

== ENCOUNTER 2021-02-21 16:55 | Emergency (ER) | payer MEDICARE, OTHER ==
--- NOTE | 2021-02-21 17:07 | EDM.PDOC ---
ED HPI GENERAL MEDICAL PROBLEM - General Chief Complaint: Genitourinary Problem Stated Complaint: URINARY CATHETER PROBLEMS Time Seen by Provider: 02/21/21 17:04 Source of Information: Reports: Patient History Limitations: Reports: No Limitations - History of Present Illness INITIAL COMMENTS - FREE TEXT/NARRATIVE: Brian, 80-year-old male, presents to the emergency department accompanied by his with complaint of leakage of his Enriquez catheter. This was placed after a mitral clip procedure 1 week ago at [facility] in [place]. Urinary retention was done noted post procedure and was consulted by urology and Enriquez catheter was placed for the interim as there was no proven factor other than a combination of medication, anesthesia services and medication, constipation, as well as procedural issues. He has done well with this until today after reclined in his chair noted some leakage at the meatus around the catheter. They have had adequate urine color and output with no major concerns until this event today. He denies any pains or spasm to his bladder. Incidental diagnosis of DVT to the right lower extremity was diagnosed on the at which time he was placed on Xarelto in conjunction to his previous aspirin and Plavix. He presents here for evaluation as he is new to the realm of an indwelling catheter. He denies fever chills or other factors with noted edema to the right lower extremity which is secondary of his DVT. Onset: Today Lower Abdomen Pain Score (Numeric/FACES): 4 - Related Data Allergies Allergy/AdvReac Type Severity Reaction Status Date / Time No Known Drug Allergies Allergy NKDA Verified 02/19/21 17:32 Home Meds: Home Meds Acetaminophen [Tylenol Extra Strength] 1,000 mg PO DAILY 04/21/18 [History] Finasteride 5 mg PO DAILY 04/21/18 [History] Multivitamin [Multivitamins] 1 cap PO DAILY 04/21/18 [History] Cholecalciferol (Vitamin D3) [Vitamin D3] 1,000 unit PO DAILY 01/13/21 [History] Cyanocobalamin (Vitamin B12) [Vitamin B12] 250 mcg PO DAILY 01/13/21 [History] Ferrous Sulfate [Iron] 325 mg PO DAILY 01/13/21 [History] Aspirin [Aspirin EC] 81 mg PO DAILY 01/28/21 [History] Clopidogrel Bisulfate [Plavix] 75 mg PO DAILY 01/28/21 [History] Nitroglycerin 0.4 mg SL ASDIRECTED PRN 01/28/21 [History] Rosuvastatin [Crestor] 20 mg PO DAILY 01/28/21 [History] oxyCODONE 5 mg PO BID PRN 01/28/21 [History] Omeprazole 20 mg PO DAILY 02/05/21 [History] ALPRAZolam [Xanax] 0.25 mg PO Q8H PRN 02/19/21 [History] Amoxicillin 2,000 mg PO ASDIRECTED PRN 02/19/21 [History] Non-Formulary Medication [NF Drug] 1 applic TOP BID PRN 02/19/21 [History] Tamsulosin HCl [Flomax] 0.8 mg PO DAILY 02/19/21 [History] Past Medical History HEENT History: Reports: Cataract Cardiovascular History: Reports: High Cholesterol, Stents, Other (See Below) Other Cardiovascular History: irreg heart beat. needs heart valve repaired scheduled for February 13, 2021 Respiratory History: Reports: Other (See Below) Other Respiratory History: Single episode of bronchitis years ago. Gastrointestinal History: Reports: Diverticulosis, Hiatal Hernia, Pancreatitis, Other (See Below) Other Gastrointestinal History: hernia, constipation Genitourinary History: Reports: Prostate Disorder Other Genitourinary History: enlarged prostate Musculoskeletal History: Reports: Arthritis, Neck Pain, Chronic Neurological History: Reports: None Psychiatric History: Reports: Anxiety Endocrine/Metabolic History: Reports: None Hematologic History: Reports: Iron Deficiency Immunologic History: Reports: None Oncologic (Cancer) History: Reports: None Dermatologic History: Reports: None - Infectious Disease History Infectious Disease History: Reports: Measles - Past Surgical History Head Surgeries/Procedures: Reports: None HEENT Surgical History: Reports: Cataract Surgery Cardiovascular Surgical History: Reports: Coronary Artery Stent, Other (See Below) Other Cardiovascular Surgeries/Procedures: [address] Respiratory Surgical History: Reports: None GI Surgical History: Reports: Cholecystectomy Male Surgical History: Reports: None Endocrine Surgical History: Reports: None Neurological Surgical History: Reports: None Musculoskeletal Surgical History: Reports: None Oncologic Surgical History: Reports: None Dermatological Surgical History: Reports: None Social & Family History - Family History HEENT: Reports: None Cardiac: Reports: Heart Failure Respiratory: Reports: None GI: Reports: None Neurological: Reports: Dementia Oncologic: Reports: Prostate, Other (See Below) Other Oncologic Family History: Penile - Brother - Caffeine Use Caffeine Use: Reports: Coffee ED ROS GENERAL - Review of Systems Review Of Systems: Comprehensive ROS is negative, except as noted in HPI. ED EXAM, GENERAL - Physical Exam Exam: See Below Free Text/Narrative:: Alert oriented in no distress. HEENT is benign. Thorax is clear Cardiac is regular Abdomen is soft bowel sounds are present. No distension is noted to the urinary bladder, no pain or pressure to palpation and pressure. There is significant ecchymosis to the right groin and perineum including the scrotum and penis. Medial thigh involved. Enriquez catheter is in place and appears intact with no drainage or irritation around the meatus. Catheter is draining with no evidence of clot formation with fine granular appearance in the urine. Leg bag has roughly 250 to 300 mL present with no clot material present. They state this is typical coloration, may be slightly darker but not as dark as what they were warned it was going to be. Significant edema to the right lower extremity from the hip all the way down secondary of his diagnosis of DVT. Ecchymotic presentation Rt lower extremity is possibly worsening secondary of being placed on Xarelto in conjunction to his Plavix and aspirin this past Friday. Motion to the extremity is intact with leg bag attached to the anterior surface of his right distal tib-fib. There appears that there may be a slight kink in his tubing as his pants he was wearing was slightly tight compressing the bag as it gained fluid. Bladder scan performed per nursing staff 272 mL. We were able to straighten tubing and get urine drainage. There did seem to be some sort of a mild obstruction in the leg bag itself which has been taped in place for their security. Tape was removed bag was removed and changed to a new leg bag from our stock and seemingly draining appropriate with no concerns or discomfort. NO clot material noted. Again with assessment over the urinary bladder there is no mass no pressure nor fullness appreciated. Course - Vital Signs Last Recorded V/S: Last Vital Signs Temp 98.5 F 02/21/21 17:08 Pulse 71 02/21/21 17:08 Resp 20 02/21/21 17:08 BP 113/63 02/21/21 17:08 Pulse Ox 98 02/21/21 17:08 - Orders/Labs/Meds Orders: Active Orders 24 hr Category Date Time Status Bladder Scan [RC] ASDIRECTED Care 02/21/21 17:15 Active - Re-Assessments/Exams Free Text/Narrative Re-Assessment/Exam: 02/21/21 18:06 After leg bag changed draining appropriately reassessed to find no discomfort or concerns. Departure - Departure Time of Disposition: 18:14 Disposition: Home, Self-Care 01 Condition: Good Clinical Impression: Swelling of right lower extremity, Retention of urine due to occlusion of Enriquez catheter - Discharge Information *PRESCRIPTION DRUG MONITORING PROGRAM REVIEWED*: Not Applicable *COPY OF PRESCRIPTION DRUG MONITORING REPORT IN PATIENT BETTY: Not Applicable Referrals: Gogo Vann MD [Primary Care Provider] - Forms: ED Department Discharge Additional Instructions: Make sure to continue drinking plenty of fluids to reduce the concentration of your urine. Continue all your medications as directed. Make sure you always have the bag, whether it is a leg bag or the large bag at least the distance of the bag below your pelvis. If you are seated with your legs elevated you need to remove the leg bag and have it to your side below the level of the bed. The leakage is likely caused from backing up of the urine from the kink in the tubing as it seems to be flow flowing fine after we replaced the bag. Follow-up with your urologist or clinic as needed and scheduled, or return to the emergency department if concerns develop outside of clinic hours. Sepsis Event Note (ED) - Focused Exam Vital Signs: Vital Signs Temp Pulse Resp BP Pulse Ox 02/21/21 17:08 98.5 F 71 20 113/63 98 - Problem List & Annotations (1) Retention of urine due to occlusion of Enriquez catheter SNOMED Code(s): 318919117 Code(s): T83.198A - [facility] COMPL OF OTH URINARY DEVICES AND IMPLANTS, INIT ENCNTR; R33.8 - OTHER RETENTION OF URINE Status: Acute Priority: High Current Visit: Yes Annotation/Comment:: Catheter is patent its appears there was a kink in the tubing as well as his history of slight elevation of the leg back this afternoon. - Problem List Review Problem List Initiated/Reviewed/Updated: Yes - My Orders Last 24 Hours: My Active Orders 02/21/21 17:15 Bladder Scan [RC] ASDIRECTED - Assessment/Plan Last 24 Hours: My Active Orders 02/21/21 17:15 Bladder Scan [RC] ASDIRECTED Plan: Make sure to continue drinking plenty of fluids to reduce the concentration of your urine. Continue all your medications as directed. Make sure you always have the bag, whether it is a leg bag or the large bag at least the distance of the bag below your pelvis. If you are seated with your legs elevated you need to remove the leg bag and have it to your side below the level of the bed. The leakage is likely caused from backing up of the urine from the kink in the tubing as it seems to be flow flowing fine after we replaced the bag. Follow-up with your urologist or clinic as needed and scheduled, or return to the emergency department if concerns develop outside of clinic hours.
== END 2021-02-21 18:45 | disposition home or self-care (01) ==
LOC: KA.ED 16:55
DX: T83.091A Other mechanical complication of indwelling urethral catheter, initial encounter (principal); E78.00 Pure hypercholesterolemia, unspecified; R33.9 Retention of urine, unspecified; M79.89 Other specified soft tissue disorders; Z79.899 Other long term (current) drug therapy
CPT/HCPCS: 99284; 99284-25

== ENCOUNTER 2021-03-03 16:50 | Emergency (ER) | payer MEDICARE, OTHER ==
--- NOTE | 2021-03-03 17:10 | EDM.PDOC ---
ED HPI GENERAL MEDICAL PROBLEM - General Chief Complaint: Eye Problems Stated Complaint: BLOOD IN EYE Time Seen by Provider: 03/03/21 16:58 Source of Information: Reports: Patient History Limitations: Reports: No Limitations - History of Present Illness INITIAL COMMENTS - FREE TEXT/NARRATIVE: 80 YO WM PRESENTS TO ER COMPLAINING OF LEFT EYE SUBCONJUNCTIVAL HEMORRHAGE WHICH BEGAN YESTERDAY. PT REPORTS HE WAS SEEN IN CLINIC AND DIAGNOSED WITH SUBCONJUNCTIVAL HEMORRHAGE AND GIVEN SOME EYE LUBRICATION DROPS. PT REPORTS HE WOKE THIS AM WITH BRUISING TO HIS LOWER EYE LID AND WORSENING HEMORRHAGE IN LEFT EYE PROMPTING CONCERN AND ER EVALUATION. PT IS CURRENTLY TAKING XARELTO, AND PLAVIX SECONDARY TO RECENT CARDIAC STENT PLACEMENT. PT DENIES ANY HEADACHE, EYE PAIN OR VISUAL CHANGES. PT REPORTS NO PROBLEMS WITH HIS BLOOD PRESSURE FAR HE KNOWS AND HIS BLOOD PRESSURE AT CLINIC WAS 110/70. Onset Date: 03/02/21 Duration: Day(s): (1) Location: Reports: Face Severity: Mild Improves with: Reports: None Worsens with: Reports: None Associated Symptoms: Reports: No Other Symptoms - Related Data Allergies Allergy/AdvReac Type Severity Reaction Status Date / Time No Known Drug Allergies Allergy NKDA Verified 03/03/21 17:25 Home Meds: Home Meds Acetaminophen [Tylenol Extra Strength] 1,000 mg PO DAILY 04/21/18 [History] Finasteride 5 mg PO DAILY 04/21/18 [History] Multivitamin [Multivitamins] 1 cap PO DAILY 04/21/18 [History] Cholecalciferol (Vitamin D3) [Vitamin D3] 1,000 unit PO DAILY 01/13/21 [History] Cyanocobalamin (Vitamin B12) [Vitamin B12] 250 mcg PO DAILY 01/13/21 [History] Ferrous Sulfate [Iron] 325 mg PO DAILY 01/13/21 [History] Aspirin [Aspirin EC] 81 mg PO DAILY 01/28/21 [History] Clopidogrel Bisulfate [Plavix] 75 mg PO DAILY 01/28/21 [History] Nitroglycerin 0.4 mg SL ASDIRECTED PRN 01/28/21 [History] Rosuvastatin [Crestor] 20 mg PO DAILY 01/28/21 [History] oxyCODONE 5 mg PO BID PRN 01/28/21 [History] Omeprazole 20 mg PO DAILY 02/05/21 [History] ALPRAZolam [Xanax] 0.25 mg PO Q8H PRN 02/19/21 [History] Amoxicillin 2,000 mg PO ASDIRECTED PRN 02/19/21 [History] Non-Formulary Medication [NF Drug] 1 applic TOP BID PRN 02/19/21 [History] Tamsulosin HCl [Flomax] 0.8 mg PO DAILY 02/19/21 [History] Past Medical History HEENT History: Reports: Cataract Cardiovascular History: Reports: High Cholesterol, Stents, Other (See Below) Other Cardiovascular History: irreg heart beat. needs heart valve repaired sche duled for February 13, 2021 Respiratory History: Reports: Other (See Below) Other Respiratory History: Single episode of bronchitis years ago. Gastrointestinal History: Reports: Diverticulosis, Hiatal Hernia, Pancreatitis, Other (See Below) Other Gastrointestinal History: hernia, constipation Genitourinary History: Reports: Prostate Disorder Other Genitourinary History: enlarged prostate Musculoskeletal History: Reports: Arthritis, Neck Pain, Chronic Neurological History: Reports: None Psychiatric History: Reports: Anxiety Endocrine/Metabolic History: Reports: None Hematologic History: Reports: Iron Deficiency Immunologic History: Reports: None Oncologic (Cancer) History: Reports: None Dermatologic History: Reports: None - Infectious Disease History Infectious Disease History: Reports: Measles - Past Surgical History Head Surgeries/Procedures: Reports: None HEENT Surgical History: Reports: Cataract Surgery Cardiovascular Surgical History: Reports: Coronary Artery Stent, Other (See Below) Other Cardiovascular Surgeries/Procedures: [address] Respiratory Surgical History: Reports: None GI Surgical History: Reports: Cholecystectomy Male Surgical History: Reports: None Endocrine Surgical History: Reports: None Neurological Surgical History: Reports: None Musculoskeletal Surgical History: Reports: None Oncologic Surgical History: Reports: None Dermatological Surgical History: Reports: None Social & Family History - Family History HEENT: Reports: None Cardiac: Reports: Heart Failure Respiratory: Reports: None GI: Reports: None Neurological: Reports: Dementia Oncologic: Reports: Prostate, Other (See Below) Other Oncologic Family History: Penile - Brother - Caffeine Use Caffeine Use: Reports: Coffee ED ROS GENERAL - Review of Systems Review Of Systems: See Below Constitutional: Reports: No Symptoms HEENT: Reports: Eye Pain Respiratory: Reports: No Symptoms Cardiovascular: Reports: No Symptoms Endocrine: Reports: No Symptoms GI/Abdominal: Reports: No Symptoms : Reports: No Symptoms Musculoskeletal: Reports: No Symptoms Skin: Reports: No Symptoms Neurological: Reports: No Symptoms Psychiatric: Reports: No Symptoms Hematologic/Lymphatic: Reports: No Symptoms ED EXAM GENERAL W FULL EYE - Physical Exam Exam: See Below Exam Limited By: No Limitations General Appearance: Alert, WD/WN, No Apparent Distress Eye Exam: Bilateral Eye: EOMI, PERRL Visual Acuity (R) 20/: 50 Visual Acuity (L) 20/: 70 With Correction: No Eyelids: Right: Erythema, Left: Normal Appearance Conjunctiva & Sclera: Right: Subconjuctival Hemorrhage, Left: Normal Appearance Cornea Exam: Bilateral: Normal Appearance Pupillary Reaction: Bilateral: Brisk Anterior Chamber: Right: Hyphema, Left: Normal Appearance Posterior Chamber: Right: Hemorrhage, Left: Normal Funduscopic Head: Atraumatic, Normocephalic Neck: Normal Inspection, Supple, Non-Tender, Full Range of Motion Respiratory/Chest: No Respiratory Distress, Lungs Clear, Normal Breath Sounds, No Accessory Muscle Use, Chest Non-Tender Cardiovascular: Normal Peripheral Pulses, Regular Rate, Rhythm, No Edema, No Gallop, No JVD, No Murmur, No Rub GI/Abdominal: Normal Bowel Sounds, Soft, Non-Tender, No Organomegaly, No Dis tention, No Abnormal Bruit, No Mass Back Exam: Normal Inspection, Full Range of Motion, NT Extremities: Normal Inspection, Normal Range of Motion, Non-Tender, Normal Capillary Refill, No Pedal Edema Neurological: Alert, Oriented, CN II-XII Intact, Normal Cognition, Normal Gait, Normal Reflexes, No Motor/Sensory Deficits Psychiatric: Normal Affect, Normal Mood Skin Exam: Warm, Dry, Intact, Normal Color, No Rash Lymphatic: No Adenopathy Course - Vital Signs Last Recorded V/S: Last Vital Signs Temp 97.6 F 03/03/21 17:00 Pulse 69 03/03/21 17:00 Resp 20 03/03/21 17:00 BP 113/65 03/03/21 17:00 Pulse Ox 96 03/03/21 17:00 - Orders/Labs/Meds Orders: Active Orders 24 hr Category Date Time Status Visual Acuity [Vision Test] [RC] ASDIRECTED Care 03/03/21 16:57 Active Departure - Departure Time of Disposition: 17:52 Disposition: Home, Self-Care 01 Condition: Good Clinical Impression: Subconjunctival hemorrhage of left eye - Discharge Information Instructions: Subconjunctival Hemorrhage Forms: ED Department Discharge Additional Instructions: 1. DISCHARGE HOME 2. DISCUSSED CASE WITH [facility] PT TO FOLLOW UP IN OFFICE ON FRIDAY FOR RECHECK 3. AVOID LIFTING OR STRAINING 4. ICE TO EYE NEEDED 5. RETURN TO ER FOR WORSENING SYMPTOMS Sepsis Event Note (ED) - Focused Exam Vital Signs: Vital Signs Temp Pulse Resp BP Pulse Ox 03/03/21 17:00 97.6 F 69 20 113/65 96 - My Orders Last 24 Hours: My Active Orders 03/03/21 16:57 Visual Acuity [Vision Test] [RC] ASDIRECTED - Assessment/Plan Last 24 Hours: My Active Orders 03/03/21 16:57 Visual Acuity [Vision Test] [RC] ASDIRECTED Assessment:: 1. LEFT SUBCONJUNCTIVAL HEMORRHAGE 2. LEFT LOWER LID ECCHYMOSIS Plan: 1. DISCHARGE HOME 2. DISCUSSED CASE WITH [facility] PT TO FOLLOW UP IN OFFICE ON FRIDAY FOR RECHECK 3. AVOID LIFTING OR STRAINING 4. ICE TO EYE NEEDED 5. RETURN TO ER FOR WORSENING SYMPTOMS
== END 2021-03-03 18:18 | disposition home or self-care (01) ==
LOC: KA.ED 16:50
DX: H11.32 Conjunctival hemorrhage, left eye (principal); E78.00 Pure hypercholesterolemia, unspecified; Z79.82 Long term (current) use of aspirin; Z79.02 Long term (current) use of antithrombotics/antiplatelets; Z95.5 Presence of coronary angioplasty implant and graft
CPT/HCPCS: 99283

== ENCOUNTER 2021-04-09 18:48 | Emergency (ER) | payer MEDICARE, OTHER ==
--- NOTE | 2021-04-09 18:54 | EDM.PDOC ---
ED HPI GENERAL MEDICAL PROBLEM - General Chief Complaint: Trauma Stated Complaint: BIT TONGUE Time Seen by Provider: 04/09/21 18:54 Source of Information: Reports: Patient, Family - History of Present Illness INITIAL COMMENTS - FREE TEXT/NARRATIVE: Brina, 80-year-old male, presents along with his after he was enjoying an apple at roughly 1630 hrs. today when he bit his tongue. He denied any issues with it until his saw blood-tinged lips and asked him what it happened. They then evaluated at and presented to the emergency department for a puncture wound to the left side tip of the tongue. His states to me that throughout the day he has been struggling with his bowels as usual and was able to get some of it worked out but has been having some cramping sensation since then. States more comfortable with the ball at the time of the arrival here for the tongue bleeding. Unfortunately he is on anticoagulation therapy as well as Plavix making this a pressure only situation for control. I explained that this is not suturable nor able to be cauterized as it is a puncture wound and that if I attempt to suture and ligate the bleed I will be putting 2 more holes in that would increase the bleeding as well. His anticoagulation cannot be stopped or reversed immediately to get hemostasis as it would then be placing him it additional risk for clotting issues. Onset: Today Duration: Hour(s): - Related Data Allergies Allergy/AdvReac Type Severity Reaction Status Date / Time No Known Drug Allergies Allergy NKDA Verified 04/09/21 19:20 Home Meds: Home Meds Acetaminophen [Tylenol Extra Strength] 1,000 mg PO DAILY 04/21/18 [History] Finasteride 5 mg PO DAILY 04/21/18 [History] Multivitamin [Multivitamins] 1 cap PO DAILY 04/21/18 [History] Cholecalciferol (Vitamin D3) [Vitamin D3] 1,000 unit PO DAILY 01/13/21 [History] Cyanocobalamin (Vitamin B12) [Vitamin B12] 250 mcg PO DAILY 01/13/21 [History] Ferrous Sulfate [Iron] 325 mg PO DAILY 01/13/21 [History] Aspirin [Aspirin EC] 81 mg PO DAILY 01/28/21 [History] Clopidogrel Bisulfate [Plavix] 75 mg PO DAILY 01/28/21 [History] Nitroglycerin 0.4 mg SL ASDIRECTED PRN 01/28/21 [History] Rosuvastatin [Crestor] 20 mg PO DAILY 01/28/21 [History] oxyCODONE 5 mg PO BID PRN 01/28/21 [History] Omeprazole 20 mg PO DAILY 02/05/21 [History] ALPRAZolam [Xanax] 0.25 mg PO Q8H PRN 02/19/21 [History] Amoxicillin 2,000 mg PO ASDIRECTED PRN 02/19/21 [History] Non-Formulary Medication [NF Drug] 1 applic TOP BID PRN 02/19/21 [History] Tamsulosin HCl [Flomax] 0.8 mg PO DAILY 02/19/21 [History] Past Medical History HEENT History: Reports: Cataract Cardiovascular History: Reports: High Cholesterol, Stents, Other (See Below) Other Cardiovascular History: irreg heart beat. needs heart valve repaired scheduled for February 13, 2021 Respiratory History: Reports: Other (See Below) Other Respiratory History: Single episode of bronchitis years ago. Gastrointestinal History: Reports: Diverticulosis, Hiatal Hernia, Pancreatitis, Other (See Below) Other Gastrointestinal History: hernia, constipation Genitourinary History: Reports: Prostate Disorder Other Genitourinary History: enlarged prostate Musculoskeletal History: Reports: Arthritis, Neck Pain, Chronic Neurological History: Reports: None Psychiatric History: Reports: Anxiety Endocrine/Metabolic History: Reports: None Hematologic History: Reports: Iron Deficiency Immunologic History: Reports: None Oncologic (Cancer) History: Reports: None Dermatologic History: Reports: None - Infectious Disease History Infectious Disease History: Reports: Measles - Past Surgical History Head Surgeries/Procedures: Reports: None HEENT Surgical History: Reports: Cataract Surgery Cardiovascular Surgical History: Reports: Coronary Artery Stent, Other (See Below) Other Cardiovascular Surgeries/Procedures: [address] Respiratory Surgical History: Reports: None GI Surgical History: Reports: Cholecystectomy Male Surgical History: Reports: None Endocrine Surgical History: Reports: None Neurological Surgical History: Reports: None Musculoskeletal Surgical History: Reports: None Oncologic Surgical History: Reports: None Dermatological Surgical History: Reports: None Social & Family History - Family History Family Medical History: No Pertinent Family History HEENT: Reports: None Cardiac: Reports: Heart Failure Respiratory: Reports: None GI: Reports: None Neurological: Reports: Dementia Oncologic: Reports: Prostate, Other (See Below) Other Oncologic Family History: Penile - Brother - Caffeine Use Caffeine Use: Reports: Coffee ED ROS GENERAL - Review of Systems Review Of Systems: Comprehensive ROS is negative, except as noted in HPI. ED EXAM, GENERAL - Physical Exam Exam: See Below Free Text/Narrative:: Alert oriented and in no major distress. He acknowledges some abdominal pressure as he is cramping and has gas moving that he states is only able to pass when seated on toilet. HEENT shows a puncture wound to the left anterior tip of the tongue which bleeding is controlled with direct pressure but has formed a small hematoma. It is not a through and through with only the dorsal surface showing the puncture. There is no other irritation in his mouth. Is nonlabored respirations with active bowel sounds and a cramping sensation to the abdomen. He moves his extremities about with no significant discomfort +1 edema in the lower extremities. Course - Vital Signs Last Recorded V/S: Last Vital Signs Temp 98.7 F 04/09/21 18:50 Pulse 56 L 04/09/21 18:50 Resp 20 04/09/21 18:50 BP 136/71 04/09/21 18:50 Pulse Ox 97 04/09/21 18:50 - Orders/Labs/Meds Orders: Active Orders 24 hr Category Date Time Status Abdomen 2V AP Upright Decub [CR] Stat Exams 04/09/21 19:18 Ordered - Re-Assessments/Exams Free Text/Narrative Re-Assessment/Exam: 04/09/21 20:49 bleeding controlled for the past 35 minutes. Radiology report confirms no acute abdominal issues. Departure - Departure Time of Disposition: 20:53 Disposition: Home, Self-Care 01 Condition: Good Clinical Impression: Puncture wound of tongue Qualifiers: Encounter type: initial encounter Qualified Code(s): S01.532A - Puncture wound without foreign body of oral cavity, initial encounter - Discharge Information *PRESCRIPTION DRUG MONITORING PROGRAM REVIEWED*: Not Applicable *COPY OF PRESCRIPTION DRUG MONITORING REPORT IN PATIENT BETTY: Not Applicable Referrals: David Espinosa [facility] [Primary Care Provider] - Forms: ED Department Discharge Additional Instructions: You need to avoid any rough or hot foods to reduce the risk of bleeding r ecurring to the tongue. If bleeding starts ooze after you leave the facility, clamp direct pressure with your fingers as you have been doing here in the emergency department. Continue your bowel program and hopefully will be able to pass the remainder of that gas being coming more comfortable. In the event bleeding was unable to be controlled with direct pressure, consideration for speaking with specialist as they would have to do some form of invasive procedure versus stopping your anticoagulation therapy. Contact your clinic in the morning if concerns or return to the emergency department as needed. Sepsis Event Note (ED) - Focused Exam Vital Signs: Vital Signs Temp Pulse Resp BP Pulse Ox 04/09/21 18:50 98.7 F 56 L 20 136/71 97 - Problem List & Annotations (1) Open wound of tongue due to bite SNOMED Code(s): 762244674, 344161408 Code(s): S01.552A - OPEN BITE OF ORAL CAVITY, INITIAL ENCOUNTER Status: Acute Priority: High (2) Puncture wound of tongue SNOMED Code(s): 43493238668751302 Code(s): S01.532A - PUNCTURE WOUND W/O FOREIGN BODY OF ORAL CAVITY, INIT ENCNTR Status: Acute Priority: High Qualifiers: Encounter type: initial encounter Qualified Code(s): S01.532A - Puncture wound without foreign body of oral cavity, initial encounter (3) Abdominal cramping SNOMED Code(s): 771635955, 480556643 Code(s): R10.9 - UNSPECIFIED ABDOMINAL PAIN Status: Chronic Priority: Medium - Problem List Review Problem List Initiated/Reviewed/Updated: Yes - My Orders Last 24 Hours: My Active Orders 04/09/21 19:18 Abdomen 2V AP Upright Decub [CR] Stat - Assessment/Plan Last 24 Hours: My Active Orders 04/09/21 19:18 Abdomen 2V AP Upright Decub [CR] Stat Plan: You need to avoid any rough or hot foods to reduce the risk of bleeding recurring to the tongue. If bleeding starts ooze after you leave the facility, clamp direct pressure with your fingers as you have been doing here in the emergency department. Continue your bowel program and hopefully will be able to pass the remainder of that gas being coming more comfortable. In the event bleeding was unable to be controlled with direct pressure, consideration for speaking with specialist as they would have to do some form of invasive procedure versus stopping your anticoagulation therapy. Contact your clinic in the morning if concerns or return to the emergency department as needed.
== END 2021-04-09 21:00 | disposition home or self-care (01) ==
LOC: KA.ED 18:48
DX: S01.532A Puncture wound without foreign body of oral cavity, initial encounter (principal); E78.00 Pure hypercholesterolemia, unspecified; Z95.5 Presence of coronary angioplasty implant and graft; Z79.02 Long term (current) use of antithrombotics/antiplatelets; Z79.899 Other long term (current) drug therapy; W50.3XXA Accidental bite by another person, initial encounter
CPT/HCPCS: 74021; 99283; 99284

== ENCOUNTER 2021-04-21 20:36 | Emergency (ER) | payer MEDICARE, OTHER ==
--- NOTE | 2021-04-21 20:51 | EDM.PDOC ---
ED HPI GENERAL MEDICAL PROBLEM - General Chief Complaint: ENT Problem Stated Complaint: TONGUE INJURY Time Seen by Provider: 04/21/21 20:39 Source of Information: Reports: Patient History Limitations: Reports: No Limitations - History of Present Illness INITIAL COMMENTS - FREE TEXT/NARRATIVE: 80 YO WM PRESENTS TO ER COMPLAINING OF TONGUE INJURY AFTER ACCIDENTALLY BITING IT WHILE EATING EARLIER TODAY. PT REPORTS HE HAS BEEN TRYING TO CONTROL THE BLEEDING WITH ICE IN HIS MOUTH AND PRESSURE TO NO AVAIL. PT REPORTS HE WAS IN ER 12 DAYS AGO WITH SIMILAR INJURY FROM BITING HIS TONGUE WHILE EATING AN APPLE. PT TAKES XARELTO AND PLAVIX AND HAS HAD DELAYED HEALING/DIFFICULTY CONTROLLING BLEEDING IN THE PAST WITH A SUBCONJUNCTIVAL HEMORRHAGE WHICH HAS SINCE RESOLVED. Onset: Today Duration: Hour(s): (2) Location: Reports: Face Quality: Reports: Ache Severity: Mild Improves with: Reports: None Worsens with: Reports: None Associated Symptoms: Reports: No Other Symptoms - Related Data Allergies Allergy/AdvReac Type Severity Reaction Status Date / Time No Known Drug Allergies Allergy NKDA Verified 04/09/21 19:20 Home Meds: Home Meds Acetaminophen [Tylenol Extra Strength] 1,000 mg PO DAILY 04/21/18 [History] Finasteride 5 mg PO DAILY 04/21/18 [History] Multivitamin [Multivitamins] 1 cap PO DAILY 04/21/18 [History] Cholecalciferol (Vitamin D3) [Vitamin D3] 1,000 unit PO DAILY 01/13/21 [History] Cyanocobalamin (Vitamin B12) [Vitamin B12] 250 mcg PO DAILY 01/13/21 [History] Ferrous Sulfate [Iron] 325 mg PO DAILY 01/13/21 [History] Clopidogrel Bisulfate [Plavix] 75 mg PO DAILY 01/28/21 [History] Nitroglycerin 0.4 mg SL ASDIRECTED PRN 01/28/21 [History] Rosuvastatin [Crestor] 20 mg PO DAILY 01/28/21 [History] oxyCODONE 5 mg PO BID PRN 01/28/21 [History] Omeprazole 20 mg PO DAILY 02/05/21 [History] ALPRAZolam [Xanax] 0.25 mg PO Q8H PRN 02/19/21 [History] Amoxicillin 2,000 mg PO ASDIRECTED PRN 02/19/21 [History] Non-Formulary Medication [NF Drug] 1 applic TOP BID PRN 02/19/21 [History] Tamsulosin HCl [Flomax] 0.8 mg PO DAILY 02/19/21 [History] Docusate Sodium/Sennosides [Senna Plus] 3 tab PO BID 04/21/21 [History] Rivaroxaban [Xarelto] 20 mg PO DAILY 04/21/21 [History] Sertraline [Zoloft] 50 mg PO DAILY 04/21/21 [History] Past Medical History HEENT History: Reports: Cataract Cardiovascular History: Reports: High Cholesterol, Stents, Other (See Below) Other Cardiovascular History: irreg heart beat. needs heart valve repaired scheduled for February 13, 2021 Respiratory History: Reports: Other (See Below) Other Respiratory History: Single episode of bronchitis years ago. Gastrointestinal History: Reports: Diverticulosis, Hiatal Hernia, Pancreatitis, Other (See Below) Other Gastrointestinal History: hernia, constipation Genitourinary History: Reports: Prostate Disorder Other Genitourinary History: enlarged prostate Musculoskeletal History: Reports: Arthritis, Neck Pain, Chronic Neurological History: Reports: None Psychiatric History: Reports: Anxiety Endocrine/Metabolic History: Reports: None Hematologic History: Reports: Iron Deficiency Immunologic History: Reports: None Oncologic (Cancer) History: Reports: None Dermatologic History: Reports: None - Infectious Disease History Infectious Disease History: Reports: Measles - Past Surgical History Head Surgeries/Procedures: Reports: None HEENT Surgical History: Reports: Cataract Surgery Cardiovascular Surgical History: Reports: Coronary Artery Stent, Other (See Below) Other Cardiovascular Surgeries/Procedures: [address] Respiratory Surgical History: Reports: None GI Surgical History: Reports: Cholecystectomy Male Surgical History: Reports: None Endocrine Surgical History: Reports: None Neurological Surgical History: Reports: None Musculoskeletal Surgical History: Reports: None Oncologic Surgical History: Reports: None Dermatological Surgical History: Reports: None Social & Family History - Family History Family Medical History: No Pertinent Family History HEENT: Reports: None Cardiac: Reports: Heart Failure Respiratory: Reports: None GI: Reports: None Neurological: Reports: Dementia Oncologic: Reports: Prostate, Other (See Below) Other Oncologic Family History: Penile - Brother - Caffeine Use Caffeine Use: Reports: Coffee ED ROS ENT - Review of Systems Review Of Systems: See Below Constitutional: Reports: No Symptoms HEENT: Reports: Other (0.5CM TONGUE LACERATION TO THE TIP OF TONGUE) Respiratory: Reports: No Symptoms Cardiovascular: Reports: No Symptoms Endocrine: Reports: No Symptoms GI/Abdominal: Reports: No Symptoms : Reports: No Symptoms Musculoskeletal: Reports: No Symptoms Skin: Reports: Wound (.5CM TONGUE LACERATION TO THE TIP OF TONGUE) Neurological: Reports: No Symptoms ED EXAM, ENT - Physical Exam Exam: See Below Exam Limited By: No Limitations General Appearance: Alert, WD/WN, No Apparent Distress Nose: Normal Inspection, Normal Mucousa, No Blood Mouth/Throat: Normal Gums, Normal Lips, Normal Teeth, Bleeding, Other (.5CM TONGUE LACERATION TO THE TIP OF TONGUE) Course - Vital Signs Last Recorded V/S: Last Vital Signs Temp 99.4 F 04/21/21 20:54 Pulse 67 04/21/21 20:54 Resp 20 04/21/21 20:54 BP 130/80 04/21/21 20:54 Pulse Ox 97 04/21/21 20:54 - Re-Assessments/Exams Free Text/Narrative Re-Assessment/Exam: 04/21/21 20:59 SURGICEL APPLIED TO TIP OF TONGUE FOLLOWED BY PRESSURE AND ICE TO TONGUE. BLEEDING RESOLVED AFTER APPROXIMATELY 5 MINUTES. PT TOLERATED PROCEDURE WELL. Departure - Departure Time of Disposition: 21:28 Disposition: Home, Self-Care 01 Condition: Good Clinical Impression: Open wound of tongue due to bite Tongue laceration Qualifiers: Encounter type: initial encounter Qualified Code(s): S01.512A - Laceration without foreign body of oral cavity, initial encounter - Discharge Information Instructions: Mouth Laceration Referrals: David Espinosa C[facility]NER [Nurse Practitioner] - Forms: ED Department Discharge Additional Instructions: 1. DISCHARGE HOME 2. ICE TO TONGUE 3. PRESSURE TO TONGUE IF BLEEDING CONTINUES 4. RETURN TO ER FOR WORSENING SYMPTOMS 5. FOLLOW UP WITH PCP FOR FURTHER EVALUATION AND TREATMENT NEEDED Sepsis Event Note (ED) - Focused Exam Vital Signs: Vital Signs Temp Pulse Resp BP Pulse Ox 04/21/21 20:54 99.4 F 67 20 130/80 97 - Assessment/Plan Assessment:: 1. 0.5CM TONGUE LACERATION TO THE TIP OF TONGUE- NONSUTURABLE; BLEEDING CONTROLLED Plan: 1. DISCHARGE HOME 2. ICE TO TONGUE 3. PRESSURE TO TONGUE IF BLEEDING CONTINUES 4. RETURN TO ER FOR WORSENING SYMPTOMS 5. FOLLOW UP WITH PCP FOR FURTHER EVALUATION AND TREATMENT NEEDED
== END 2021-04-21 21:50 | disposition home or self-care (01) ==
LOC: KA.ED 20:36
DX: S01.552A Open bite of oral cavity, initial encounter (principal); E78.00 Pure hypercholesterolemia, unspecified; Z79.02 Long term (current) use of antithrombotics/antiplatelets; Z79.01 Long term (current) use of anticoagulants; Z79.899 Other long term (current) drug therapy; X58.XXXA Exposure to other specified factors, initial encounter
CPT/HCPCS: 99282; 99283

== ENCOUNTER 2021-07-21 08:08 | Emergency (ER) | payer MEDICARE, OTHER ==
[2021-07-21] MEDS ORDERED: Ondansetron 4 MG/2 ML SDV IVPUSH ONE (08:31)
[2021-07-21] MEDS ORDERED: Sodium Chloride 0.9% 1,000 ML IV ONE (08:31)
[2021-07-21] MEDS ORDERED: Sodium Chloride 0.9% 10 ML Syringe FLUSH PRN (08:33)
[2021-07-21 09:07] LABS: ANION GAP 12.3 mmol/L (5-15); CHLORIDE,CL 108 mmol/L (98-107); SODIUM,NA 149 mmol/L (136-145)
--- NOTE | 2021-07-21 09:18 | EDM.PDOC ---
ED HPI GENERAL MEDICAL PROBLEM - General Chief Complaint: Gastrointestinal Problem Stated Complaint: NAUSEA/VOMITING Time Seen by Provider: 07/21/21 09:00 Source of Information: Reports: Patient History Limitations: Reports: No Limitations - History of Present Illness INITIAL COMMENTS - FREE TEXT/NARRATIVE: 81 YO WM PRESENTS TO ER COMPLAINING OF NAUSEA/VOMITING WHICH BEGAN YESTERDAY AFTER SUPPER. PT REPORTS HE ATE FRIED CHICKEN WITH MASHED POTATOES AND GRAVY AND SOON AFTER BECAME NAUSEATED AND VOMITED. PT REPORTS APPROXIMATELY 5 EPISODES OF VOMITING WITH ASSOCIATED "HEART BURN" AND ABDOMINAL CRAMPING. PT DENIES ANY DIARRHEA OR FREQUENT STOOLS. PT DENIES CHEST PAIN, SHORTNESS OF BREATH, DIAPHORESIS OR DIZZINESS. PT DENIES FEVER/CHILLS, COUGH/CONGESTION OR KNOWN COVID EXPOSURES. PT REPORTS HE HAS BEEN VACCINATED FOR COVID. PT STATES HE FEELS BETTER AFTER ADMINISTRATION OF ZOFRAN. Onset Date: 07/20/21 Onset Time: 17:00 Location: Reports: Generalized Quality: Reports: Burning Severity: Mild Improves with: Reports: Medication Worsens with: Reports: None Associated Symptoms: Reports: No Other Symptoms, Malaise, Nausea/Vomiting. Denies: Chest Pain, Cough, Diaphoresis, Fever/Chills, Shortness of Breath, Syncope Upper Abdomen Pain Score (Numeric/FACES): 4 - Related Data Allergies Allergy/AdvReac Type Severity Reaction Status Date / Time No Known Drug Allergies Allergy NKDA Verified 05/15/21 12:15 Home Meds: Home Meds Acetaminophen [Tylenol Extra Strength] 1,000 mg PO DAILY 04/21/18 [History] Finasteride 5 mg PO DAILY 04/21/18 [History] Multivitamin [Multivitamins] 1 cap PO DAILY 04/21/18 [History] Cholecalciferol (Vitamin D3) [Vitamin D3] 1,000 unit PO DAILY 01/13/21 [History] Cyanocobalamin (Vitamin B12) [Vitamin B12] 250 mcg PO DAILY 01/13/21 [History] Ferrous Sulfate [Iron] 325 mg PO DAILY 01/13/21 [History] Clopidogrel Bisulfate [Plavix] 75 mg PO DAILY 01/28/21 [History] Nitroglycerin 0.4 mg SL ASDIRECTED PRN 01/28/21 [History] Rosuvastatin [Crestor] 20 mg PO DAILY 01/28/21 [History] oxyCODONE 5 mg PO BID PRN 01/28/21 [History] Omeprazole 20 mg PO DAILY 02/05/21 [History] ALPRAZolam [Xanax] 0.25 mg PO Q8H PRN 02/19/21 [History] Amoxicillin 2,000 mg PO ASDIRECTED PRN 02/19/21 [History] Non-Formulary Medication [NF Drug] 1 applic TOP BID PRN 02/19/21 [History] Tamsulosin HCl [Flomax] 0.8 mg PO DAILY 02/19/21 [History] Docusate Sodium/Sennosides [Senna Plus] 3 tab PO BID 04/21/21 [History] Rivaroxaban [Xarelto] 20 mg PO DAILY 04/21/21 [History] Sertraline [Zoloft] 50 mg PO DAILY 04/21/21 [History] Famotidine [Pepcid] 20 mg PO BID #10 tab 07/21/21 [Rx] Ondansetron [Zofran ODT] 4 mg PO Q6H PRN #10 tab.dis 07/21/21 [Rx] Past Medical History HEENT History: Reports: Cataract Cardiovascular History: Reports: High Cholesterol, Stents, Other (See Below) Other Cardiovascular History: irreg heart beat. needs heart valve repaired scheduled for February 13, 2021 Respiratory History: Reports: Other (See Below) Other Respiratory History: Single episode of bronchitis years ago. Gastrointestinal History: Reports: Diverticulosis, Hiatal Hernia, Pancreatitis, Other (See Below) Other Gastrointestinal History: hernia, constipation Genitourinary History: Reports: Prostate Disorder Other Genitourinary History: enlarged prostate Musculoskeletal History: Reports: Arthritis, Neck Pain, Chronic Neurological History: Reports: None Psychiatric History: Reports: Anxiety Endocrine/Metabolic History: Reports: None Hematologic History: Reports: Iron Deficiency Immunologic History: Reports: None Oncologic (Cancer) History: Reports: None Dermatologic History: Reports: None - Infectious Disease History Infectious Disease History: Reports: Measles - Past Surgical History Head Surgeries/Procedures: Reports: None HEENT Surgical History: Reports: Cataract Surgery Cardiovascular Surgical History: Reports: Coronary Artery Stent, Other (See Below) Other Cardiovascular Surgeries/Procedures: [address] Respiratory Surgical History: Reports: None GI Surgical History: Reports: Cholecystectomy Male Surgical History: Reports: None Endocrine Surgical History: Reports: None Neurological Surgical History: Reports: None Musculoskeletal Surgical History: Reports: None Oncologic Surgical History: Reports: None Dermatological Surgical History: Reports: None Social & Family History - Family History Family Medical History: No Pertinent Family History HEENT: Reports: None Cardiac: Reports: Heart Failure Respiratory: Reports: None GI: Reports: None Neurological: Reports: Dementia Oncologic: Reports: Prostate, Other (See Below) Other Oncologic Family History: Penile - Brother - Caffeine Use Caffeine Use: Reports: Coffee ED ROS GENERAL - Review of Systems Review Of Systems: See Below Constitutional: Reports: Decreased Appetite HEENT: Reports: No Symptoms Respiratory: Reports: No Symptoms Cardiovascular: Reports: No Symptoms Endocrine: Reports: No Symptoms GI/Abdominal: Reports: Decreased Appetite, Nausea, Vomiting : Reports: No Symptoms Musculoskeletal: Reports: No Symptoms Skin: Reports: No Symptoms Neurological: Reports: No Symptoms Psychiatric: Reports: No Symptoms Hematologic/Lymphatic: Reports: No Symptoms Immunologic: Reports: No Symptoms ED EXAM, GI/ABD - Physical Exam Exam: See Below Exam Limited By: No Limitations General Appearance: Alert, WD/WN, No Apparent Distress Head: Atraumatic, Normocephalic Neck: Normal Inspection, Supple, Non-Tender, Full Range of Motion Respiratory/Chest: No Respiratory Distress, Lungs Clear, Normal Breath Sounds, No Accessory Muscle Use, Chest Non-Tender Cardiovascular: Normal Peripheral Pulses, Regular Rate, Rhythm, No Edema, No Gallop, No JVD, No Murmur, No Rub GI/Abdominal Exam: Normal Bowel Sounds, Soft, Non-Tender, No Organomegaly, No Distention, No Abnormal Bruit, No Mass, Pelvis Stable Back Exam: Normal Inspection, Full Range of Motion, NT Extremities: Normal Inspection, Normal Range of Motion, Non-Tender, Normal Capi llary Refill, No Pedal Edema Neurological: Alert, Oriented, CN II-XII Intact, Normal Cognition, Normal Gait, No Motor/Sensory Deficits Psychiatric: Normal Affect, Normal Mood Skin Exam: Warm, Dry, Intact, Normal Color, No Rash Lymphatic: No Adenopathy #1 Interpretation EKG Date: 07/21/21 Time: 08:41 Rhythm: NSR Rate (Beats/Min): 58 [place]: Normal P-Wave: Present QRS: Normal ST-T: Normal QT: Normal Course - Vital Signs Last Recorded V/S: Last Vital Signs Temp 98.4 F 07/21/21 08:22 Pulse 77 07/21/21 08:22 Resp 16 07/21/21 08:22 BP 146/78 H 07/21/21 08:22 Pulse Ox 97 07/21/21 08:22 - Orders/Labs/Meds Orders: Active Orders 24 hr Category Date Time Status Peripheral IV Care [RC] . DIRECTED Care 07/21/21 08:33 Active UA RFX SHELBY AND CULT IF INDIC [URIN] Stat Lab 07/21/21 08:32 Ordered Sodium Chloride 0.9% [Saline Flush] Med 07/21/21 08:33 Active 10 ml FLUSH Q8HR PRN Peripheral IV Insertion Adult [OM.PC] Routine Oth 07/21/21 08:33 Ordered EKG 12 Lead [EK] Stat Ther 07/21/21 08:41 Ordered Medication Orders Sodium Chloride (Sodium Chloride 0.9% 10 Ml Syringe) 10 ml FLUSH Q8HR PRN PRN Reason: keep vein open Last Admin: 07/21/21 08:57 Dose: 10 ml Documented by: SIMIN Labs: Laboratory Tests 07/21/21 07/21/21 07/21/21 Range/Units 08:40 08:40 08:40 WBC 7.03 (5.00-10.00) 10^3/uL RBC 4.20 L (4.50-6.00) 10^6/uL Hgb 12.5 L D (13.0-17.0) g/dL Hct 38.3 L (40.0-52.0) % MCV 91.2 (82.0-92.0) fL MCH 29.8 (27.0-31.0) pg MCHC 32.6 (32.0-36.0) g/dL RDW 14.4 (11.5-14.5) % Plt Count 141 L (150-400) 10^3/uL MPV 9.4 (7.4-10.4) fL Immature Gran % (Auto) 0.0 (0.0-5.0) % Neut % (Auto) 87.4 H (50.0-70.0) % Lymph % (Auto) 6.4 L (20.0-40.0) % Chase % (Auto) 6.1 (2.0-8.0) % Eos % (Auto) 0.0 L (1.0-3.0) % Baso % (Auto) 0.1 (0.0-1.0) % Neut # (Auto) 6.14 (2.50-7.00) 10^3/uL Lymph # (Auto) 0.45 L (1.00-4.00) 10^3/uL Chase # (Auto) 0.43 (0.10-0.80) 10^3/uL Eos # (Auto) 0.00 L (0.10-0.30) 10^3/uL Baso # (Auto) 0.01 (0.00-0.10) 10^3/uL Immature Gran # (Auto) 0.00 (0.00-0.50) 10^3/uL Sodium 149 H (136-145) mmol/L Potassium 3.8 (3.5-5.1) mmol/L Chloride 108 H (98-107) mmol/L Carbon Dioxide 32.5 H (21.0-32.0) mmol/L Anion Gap 12.3 (5-15) mmol/L BUN 21 H (7-18) mg/dL Creatinine 1.00 (0.51-1.17) mg/dL Est Cr Clr Drug Dosing 46.63 mL/min Estimated GFR (MDRD) > 60 mL/min Glucose 152 H (70-140) mg/dL Calcium 9.7 (8.7-10.3) mg/dL Total Bilirubin 0.9 (0.2-1.0) mg/dL AST 23 (15-37) U/L ALT 34 (14-63) U/L Alkaline Phosphatase 40 L (46-116) U/L Troponin I High Sens 16.400 (0-76.000) pg/mL Total Protein 6.3 L (6.4-8.2) g/dL Albumin 3.53 (3.40-5.00) g/dL Lipase 128 (73-393) U/L SARS CoV-2 RNA Rapid DON (NEGATIVE) 07/21/21 Range/Units 09:41 WBC (5.00-10.00) 10^3/uL RBC (4.50-6.00) 10^6/uL Hgb (13.0-17.0) g/dL Hct (40.0-52.0) % MCV (82.0-92.0) fL MCH (27.0-31.0) pg MCHC (32.0-36.0) g/dL RDW (11.5-14.5) % Plt Count (150-400) 10^3/uL MPV (7.4-10.4) fL Immature Gran % (Auto) (0.0-5.0) % Neut % (Auto) (50.0-70.0) % Lymph % (Auto) (20.0-40.0) % Chase % (Auto) (2.0-8.0) % Eos % (Auto) (1.0-3.0) % Baso % (Auto) (0.0-1.0) % Neut # (Auto) (2.50-7.00) 10^3/uL Lymph # (Auto) (1.00-4.00) 10^3/uL Chase # (Auto) (0.10-0.80) 10^3/uL Eos # (Auto) (0.10-0.30) 10^3/uL Baso # (Auto) (0.00-0.10) 10^3/uL Immature Gran # (Auto) (0.00-0.50) 10^3/uL Sodium (136-145) mmol/L Potassium (3.5-5.1) mmol/L Chloride (98-107) mmol/L Carbon Dioxide (21.0-32.0) mmol/L Anion Gap (5-15) mmol/L BUN (7-18) mg/dL Creatinine (0.51-1.17) mg/dL Est Cr Clr Drug Dosing mL/min Estimated GFR (MDRD) mL/min Glucose (70-140) mg/dL Calcium (8.7-10.3) mg/dL Total Bilirubin (0.2-1.0) mg/dL AST (15-37) U/L ALT (14-63) U/L Alkaline Phosphatase (46-116) U/L Troponin I High Sens (0-76.000) pg/mL Total Protein (6.4-8.2) g/dL Albumin (3.40-5.00) g/dL Lipase (73-393) U/L SARS CoV-2 RNA Rapid DON Negative (NEGATIVE) Meds: Medications Generic Name Dose Route Start Last Admin Trade Name Seven PRN Reason Stop Dose Admin Sodium Chloride 10 ml 07/21/21 08:33 07/21/21 08:57 Sodium Chloride 0.9% 10 Ml Syringe FLUSH 10 ml Q8HR PRN Administration keep vein open Discontinued Medications Generic Name Dose Route Start Last Admin Trade Name Seven PRN Reason Stop Dose Admin Al Hydroxide/Mg Hydroxide 30 0 ml 07/21/21 09:55 07/21/21 10:13 ml/ Lidocaine HCl 15 ml PO 07/21/21 09:56 45 ml ONETIME ONE Administration Sodium Chloride 1,000 mls @ 999 mls/hr 07/21/21 08:31 07/21/21 08:58 Normal Saline IV 07/21/21 09:31 999 mls/hr .BOLUS ONE Administration Ondansetron HCl 4 mg 07/21/21 08:31 07/21/21 08:57 Ondansetron 4 Mg/2 Ml Sdv IVPUSH 07/21/21 08:32 4 mg ONETIME ONE Administration Departure - Departure Time of Disposition: 10:29 Disposition: Home, Self-Care 01 Condition: Good Clinical Impression: Gastroenteritis - Discharge Information Prescriptions: Famotidine [Pepcid] 20 mg PO BID #10 tab Ondansetron [Zofran ODT] 4 mg PO Q6H PRN #10 tab.dis PRN Reason: Vomiting Instructions: Viral Gastroenteritis, Adult, [id number] Referrals: Gogo Vann MD [Primary Care Provider] - Forms: ED Department Discharge Additional Instructions: 1. DISCHARGE HOME 2. ZOFRAN 4MG ODT #10 EVERY 4-6 HOURS NEEDED FOR NAUSEA/VOMITING 3. CLEAR LIQUID DIET TODAY AND PROGRESS TOLERATED 4. PEPCID 20MG TWICE/DAY X 5 DAYS 5. FOLLOW UP WITH PCP NEEDED 6. RETURN TO ER FOR WORSENING SYMPTOMS Sepsis Event Note (ED) - Evaluation Sepsis Screening Result: No Definite Risk - Focused Exam Vital Signs: Vital Signs Temp Pulse Resp BP Pulse Ox 07/21/21 08:22 98.4 F 77 16 146/78 H 97 - My Orders Last 24 Hours: My Active Orders 07/21/21 08:32 UA RFX SHELBY AND CULT IF INDIC [URIN] Stat 07/21/21 08:33 Peripheral IV Care [RC] . DIRECTED Sodium Chloride 0.9% [Saline Flush] 10 ml FLUSH Q8HR PRN Peripheral IV Insertion Adult [OM.PC] Routine 07/21/21 08:41 EKG 12 Lead [EK] Stat - Assessment/Plan Last 24 Hours: My Active Orders 07/21/21 08:32 UA RFX SHELBY AND CULT IF INDIC [URIN] Stat 07/21/21 08:33 Peripheral IV Care [RC] . DIRECTED Sodium Chloride 0.9% [Saline Flush] 10 ml FLUSH Q8HR PRN Peripheral IV Insertion Adult [OM.PC] Routine 07/21/21 08:41 EKG 12 Lead [EK] Stat Assessment:: 1. GASTROENTERITIS-IMPROVED Plan: 1. DISCHARGE HOME 2. ZOFRAN 4MG ODT #10 EVERY 4-6 HOURS NEEDED FOR NAUSEA/VOMITING 3. CLEAR LIQUID DIET TODAY AND PROGRESS TOLERATED 4. PEPCID 20MG TWICE/DAY X 5 DAYS 5. FOLLOW UP WITH PCP NEEDED 6. RETURN TO ER FOR WORSENING SYMPTOMS
[2021-07-21] MEDS ORDERED: Alum Hydrox/Mag Hydrox/Simeth 30 ML, Lidocaine 2% 15 ML PO ONE ×2 (09:55)
== END 2021-07-21 11:00 | disposition home or self-care (01) ==
LOC: KA.ED 08:08
DX: K52.9 Noninfective gastroenteritis and colitis, unspecified (principal); E78.00 Pure hypercholesterolemia, unspecified; M19.90 Unspecified osteoarthritis, unspecified site; D50.9 Iron deficiency anemia, unspecified; Z79.01 Long term (current) use of anticoagulants; Z79.02 Long term (current) use of antithrombotics/antiplatelets; Z79.899 Other long term (current) drug therapy; Z20.822 Contact with and (suspected) exposure to COVID-19
CPT/HCPCS: 36415; 80053; 83690; 84484; 85025; 93005; 96374; 99284; A9270; J2405; J7030; U0002; 93010; 99285

== ENCOUNTER 2021-07-23 04:52 | Emergency (ER) | payer MEDICARE, OTHER ==
--- NOTE | 2021-07-23 05:23 | EDM.PDOC ---
ED HPI GENERAL MEDICAL PROBLEM - General Chief Complaint: General Stated Complaint: Constipation Time Seen by Provider: 07/23/21 05:10 Source of Information: Reports: Patient History Limitations: Reports: No Limitations - History of Present Illness INITIAL COMMENTS - FREE TEXT/NARRATIVE: 81 YO WM WM PRESENTS TO ER COMPLAINING OF CONSTIPATION X 3 DAYS. PT SEEN 2 DAYS AGO IN ER FOR GASTRITIS WITH NAUSEA/VOMITING. PT REPORTS HE HAS HISTORY OF CONSTIPATION AND TAKES SENOKOT DAILY. PT DENIES TRYING ANY OTHER ANTI- CONSTIPATION MEDICATIONS OVER THE LAST 3 DAYS. PT REPORTS HE HAS USED MAGNESIUM CITRATE AND MIRALAX IN THE PAST. PT DENIES USING THESE MEDICATION DURING THIS EPISODE. PT DENIES ABDOMINAL PAIN, NO NAUSEA/VOMITING OR URINARY RETENTION. PT DENIES RECTAL PAIN OR BACK PAIN. Duration: Day(s): (3) Location: Reports: Abdomen Quality: Reports: Pressure Severity: Mild Improves with: Reports: None Worsens with: Reports: None Associated Symptoms: Reports: No Other Symptoms Lower Abdomen Pain Score (Numeric/FACES): 3 - Related Data Allergies Allergy/AdvReac Type Severity Reaction Status Date / Time No Known Drug Allergies Allergy NKDA Verified 07/23/21 04:53 Home Meds: Home Meds Acetaminophen [Tylenol Extra Strength] 1,000 mg PO DAILY 04/21/18 [History] Finasteride 5 mg PO DAILY 04/21/18 [History] Multivitamin [Multivitamins] 1 cap PO DAILY 04/21/18 [History] Cholecalciferol (Vitamin D3) [Vitamin D3] 1,000 unit PO DAILY 01/13/21 [History] Cyanocobalamin (Vitamin B12) [Vitamin B12] 250 mcg PO DAILY 01/13/21 [History] Ferrous Sulfate [Iron] 325 mg PO DAILY 01/13/21 [History] Clopidogrel Bisulfate [Plavix] 75 mg PO DAILY 01/28/21 [History] Nitroglycerin 0.4 mg SL ASDIRECTED PRN 01/28/21 [History] Rosuvastatin [Crestor] 20 mg PO DAILY 01/28/21 [History] oxyCODONE 5 mg PO BID PRN 01/28/21 [History] Omeprazole 20 mg PO DAILY 02/05/21 [History] ALPRAZolam [Xanax] 0.25 mg PO Q8H PRN 02/19/21 [History] Amoxicillin 2,000 mg PO ASDIRECTED PRN 02/19/21 [History] Non-Formulary Medication [NF Drug] 1 applic TOP BID PRN 02/19/21 [History] Tamsulosin HCl [Flomax] 0.8 mg PO DAILY 02/19/21 [History] Docusate Sodium/Sennosides [Senna Plus] 3 tab PO BID 04/21/21 [History] Rivaroxaban [Xarelto] 20 mg PO DAILY 04/21/21 [History] Sertraline [Zoloft] 50 mg PO DAILY 04/21/21 [History] Famotidine [Pepcid] 20 mg PO BID #10 tab 07/21/21 [Rx] Ondansetron [Zofran ODT] 4 mg PO Q6H PRN #10 tab.dis 07/21/21 [Rx] Past Medical History HEENT History: Reports: Cataract Cardiovascular History: Reports: High Cholesterol, Stents, Other (See Below) Other Cardiovascular History: irreg heart beat. needs heart valve repaired scheduled for February 13, 2021 Respiratory History: Reports: Other (See Below) Other Respiratory History: Single episode of bronchitis years ago. Gastrointestinal History: Reports: Diverticulosis, Hiatal Hernia, Pancreatitis, Other (See Below) Other Gastrointestinal History: hernia, constipation Genitourinary History: Reports: Prostate Disorder Other Genitourinary History: enlarged prostate Musculoskeletal History: Reports: Arthritis, Neck Pain, Chronic Neurological History: Reports: None Psychiatric History: Reports: Anxiety Endocrine/Metabolic History: Reports: None Hematologic History: Reports: Iron Deficiency Immunologic History: Reports: None Oncologic (Cancer) History: Reports: None Dermatologic History: Reports: None - Infectious Disease History Infectious Disease History: Reports: Measles - Past Surgical History Head Surgeries/Procedures: Reports: None HEENT Surgical History: Reports: Cataract Surgery Cardiovascular Surgical History: Reports: Coronary Artery Stent, Other (See Below) Other Cardiovascular Surgeries/Procedures: [address] Respiratory Surgical History: Reports: None GI Surgical History: Reports: Cholecystectomy Male Surgical History: Reports: None Endocrine Surgical History: Reports: None Neurological Surgical History: Reports: None Musculoskeletal Surgical History: Reports: None Oncologic Surgical History: Reports: None Dermatological Surgical History: Reports: None Social & Family History - Family History Family Medical History: No Pertinent Family History HEENT: Reports: None Cardiac: Reports: Heart Failure Respiratory: Reports: None GI: Reports: None Neurological: Reports: Dementia Oncologic: Reports: Prostate, Other (See Below) Other Oncologic Family History: Penile - Brother - Tobacco Use Tobacco Use Status *Q: Never Tobacco User - Caffeine Use Caffeine Use: Reports: Coffee - Recreational Drug Use Recreational Drug Use: No ED ROS GENERAL - Review of Systems Review Of Systems: See Below Constitutional: Reports: No Symptoms HEENT: Reports: No Symptoms Respiratory: Reports: No Symptoms Cardiovascular: Reports: No Symptoms Endocrine: Reports: No Symptoms GI/Abdominal: Reports: Constipation. Denies: Distension, Nausea, Vomiting : Reports: No Symptoms Musculoskeletal: Reports: No Symptoms Skin: Reports: No Symptoms Neurological: Reports: No Symptoms Psychiatric: Reports: No Symptoms Hematologic/Lymphatic: Reports: No Symptoms Immunologic: Reports: No Symptoms ED EXAM, GENERAL - Physical Exam Exam: See Below Exam Limited By: No Limitations General Appearance: Alert, WD/WN, No Apparent Distress Head: Atraumatic, Normocephalic Respiratory/Chest: No Respiratory Distress, Lungs Clear, Normal Breath Sounds, No Accessory Muscle Use, Chest Non-Tender Cardiovascular: Normal Peripheral Pulses, Regular Rate, Rhythm, No Edema, No JVD, No Murmur, No Rub GI/Abdominal: Normal Bowel Sounds, Soft, Non-Tender, No Organomegaly, No Distention, No Abnormal Bruit, No Mass Back Exam: Normal Inspection, Full Range of Motion, NT Extremities: Normal Inspection, Normal Range of Motion, Non-Tender, Normal C apillary Refill, No Pedal Edema Neurological: Alert, Oriented, CN II-XII Intact, Normal Cognition, Normal Gait, No Motor/Sensory Deficits Psychiatric: Normal Affect, Normal Mood Skin Exam: Warm, Dry, Intact, Normal Color, No Rash Lymphatic: No Adenopathy Course - Vital Signs Last Recorded V/S: Last Vital Signs Temp 97.1 F 07/23/21 04:55 Pulse 51 L 07/23/21 05:05 Resp 20 07/23/21 05:05 BP 108/66 07/23/21 05:05 Pulse Ox 97 07/23/21 05:05 Departure - Departure Time of Disposition: 05:38 Disposition: Home, Self-Care 01 Condition: Good Clinical Impression: Constipation Qualifiers: Constipation type: unspecified constipation type Qualified Code(s): K59.00 - Constipation, unspecified - Discharge Information Instructions: Chronic Constipation Forms: ED Department Discharge Additional Instructions: 1. DISCHARGE HOME 2. MIRALAX DAILY DIRECTED 3. MAGNESIUM CITRATE NEEDED 4. COLACE 100MG TWICE/DAY 5. CONTINUE SENOKOT 6. FOLLOW UP WITH PCP FOR FURTHER EVALUATION AND TREATMENT Sepsis Event Note (ED) - Evaluation Sepsis Screening Result: No Definite Risk - Focused Exam Vital Signs: Vital Signs Temp Pulse Resp BP Pulse Ox 07/23/21 05:05 51 L 20 108/66 97 07/23/21 04:55 97.1 F 57 L 20 118/63 97 - Assessment/Plan Assessment:: 1. CONSTIPATION Plan: 1. DISCHARGE HOME 2. MIRALAX DAILY DIRECTED 3. MAGNESIUM CITRATE NEEDED 4. COLACE 100MG TWICE/DAY 5. CONTINUE SENOKOT 6. FOLLOW UP WITH PCP FOR FURTHER EVALUATION AND TREATMENT
[2021-07-23] MEDS ORDERED: Sodium Phosphate,Monobasic/Sodium Phosphate,Dibasic Enema 133 ML Bottle RECTAL ONE (05:33)
== END 2021-07-23 05:46 | disposition home or self-care (01) ==
LOC: KA.ED 04:52
DX: K59.00 Constipation, unspecified (principal); E78.00 Pure hypercholesterolemia, unspecified; Z79.02 Long term (current) use of antithrombotics/antiplatelets; Z79.899 Other long term (current) drug therapy; Z79.01 Long term (current) use of anticoagulants
CPT/HCPCS: 99283

== ENCOUNTER 2021-07-24 06:20 | Emergency (ER) | payer MEDICARE, OTHER ==
--- NOTE | 2021-07-24 07:45 | EDM.PDOC ---
ED HPI GENERAL MEDICAL PROBLEM - General Chief Complaint: General Stated Complaint: CONSTIPATION Time Seen by Provider: 07/24/21 07:15 Source of Information: Reports: Patient History Limitations: Reports: No Limitations - History of Present Illness INITIAL COMMENTS - FREE TEXT/NARRATIVE: 81 YO WM PRESENTS TO ER COMPLAINING OF CONSTIPATION X 4 DAYS. PT SEEN 3 DAYS AGO IN ER FOR GASTRITIS WITH NAUSEA/VOMITING. PT AGAIN SEEN YESTERDAY FOR CONSTIPATION AND GIVEN FLEETS ENEMAS AND INSTRUCTED TO TAKE MIRALAX DAILY UNTIL BM RETURN TO NORMAL. PT REPORTS HE HAS HISTORY OF CONSTIPATION AND TAKES SENOKOT DAILY. PT DENIES TRYING ANY OTHER ANTI-CONSTIPATION MEDICATIONS OVER THE LAST 4 DAYS. PT REPORTS HE HAS USED MAGNESIUM CITRATE AND MIRALAX IN THE PAST AND HAS THESE MEDICATIONS AVAILABLE TO HIM AT HOME. PT DENIES USING THESE MEDICATION DURING THIS EPISODE. PT DENIES ABDOMINAL PAIN, NO NAUSEA/VOMITING OR URINARY RETENTION. PT DENIES RECTAL PAIN OR BACK PAIN. Duration: Day(s): (4) Location: Reports: Abdomen Quality: Reports: Ache Severity: Mild Improves with: Reports: None Worsens with: Reports: None Associated Symptoms: Reports: No Other Symptoms. Denies: Chest Pain, Loss of Appetite, Malaise, Nausea/Vomiting, Shortness of Breath, Weakness lower abdomen Pain Score (Numeric/FACES): 8 - Related Data Allergies Allergy/AdvReac Type Severity Reaction Status Date / Time No Known Drug Allergies Allergy NKDA Verified 07/24/21 06:36 Home Meds: Home Meds Acetaminophen [Tylenol Extra Strength] 1,000 mg PO DAILY 04/21/18 [History] Finasteride 5 mg PO DAILY 04/21/18 [History] Multivitamin [Multivitamins] 1 cap PO DAILY 04/21/18 [History] Cholecalciferol (Vitamin D3) [Vitamin D3] 1,000 unit PO DAILY 01/13/21 [History] Cyanocobalamin (Vitamin B12) [Vitamin B12] 250 mcg PO DAILY 01/13/21 [History] Ferrous Sulfate [Iron] 325 mg PO DAILY 01/13/21 [History] Clopidogrel Bisulfate [Plavix] 75 mg PO DAILY 01/28/21 [History] Nitroglycerin 0.4 mg SL ASDIRECTED PRN 01/28/21 [History] Rosuvastatin [Crestor] 20 mg PO DAILY 01/28/21 [History] oxyCODONE 5 mg PO BID PRN 01/28/21 [History] Omeprazole 20 mg PO DAILY 02/05/21 [History] ALPRAZolam [Xanax] 0.25 mg PO Q8H PRN 02/19/21 [History] Amoxicillin 2,000 mg PO ASDIRECTED PRN 02/19/21 [History] Tamsulosin HCl [Flomax] 0.8 mg PO DAILY 02/19/21 [History] Docusate Sodium/Sennosides [Senna Plus] 3 tab PO BID 04/21/21 [History] Rivaroxaban [Xarelto] 20 mg PO DAILY 04/21/21 [History] Sertraline [Zoloft] 50 mg PO DAILY 04/21/21 [History] Famotidine [Pepcid] 20 mg PO BID #10 tab 07/21/21 [Rx] Ondansetron [Zofran ODT] 4 mg PO Q6H PRN #10 tab.dis 07/21/21 [Rx] polyethylene glycoL 3350 [MiraLAX] 17 gm PO DAILY #30 packet 07/24/21 [Rx] Past Medical History HEENT History: Reports: Cataract Cardiovascular History: Reports: High Cholesterol, Stents, Other (See Below) Other Cardiovascular History: irreg heart beat. 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 Gastrointestinal History: Reports: Chronic Constipation, Diverticulosis, GERD, Hiatal Hernia, Pancreatitis, Other (See Below) Other Gastrointestinal History: hernia, constipation Genitourinary History: Reports: Prostate Disorder Other Genitourinary History: enlarged prostate Musculoskeletal History: Reports: Arthritis, Neck Pain, Chronic Neurological History: Reports: None Psychiatric History: Reports: Anxiety Endocrine/Metabolic History: Reports: None Hematologic History: Reports: Iron Deficiency Immunologic History: Reports: None Oncologic (Cancer) History: Reports: None Dermatologic History: Reports: None - Infectious Disease History Infectious Disease History: Reports: Measles - Past Surgical History HEENT Surgical History: Reports: Cataract Surgery Cardiovascular Surgical History: Reports: Coronary Artery Stent, Other (See Below) Other Cardiovascular Surgeries/Procedures: [address] Respiratory Surgical History: Reports: None GI Surgical History: Reports: Cholecystectomy Male Surgical History: Reports: None Musculoskeletal Surgical History: Reports: None Social & Family History - Family History Family Medical History: No Pertinent Family History HEENT: Reports: None Cardiac: Reports: Heart Failure Respiratory: Reports: None GI: Reports: None Neurological: Reports: Dementia Oncologic: Reports: Prostate, Other (See Below) Other Oncologic Family History: Penile - Brother - Tobacco Use Tobacco Use Status *Q: Unknown Ever Used Tobacco - Caffeine Use Caffeine Use: Reports: Coffee ED ROS GENERAL - Review of Systems Review Of Systems: See Below Constitutional: Reports: No Symptoms HEENT: Reports: No Symptoms Respiratory: Reports: No Symptoms Cardiovascular: Reports: No Symptoms Endocrine: Reports: No Symptoms GI/Abdominal: Reports: Constipation : Reports: No Symptoms Musculoskeletal: Reports: No Symptoms Skin: Reports: No Symptoms Neurological: Reports: No Symptoms Psychiatric: Reports: No Symptoms Hematologic/Lymphatic: Reports: No Symptoms Immunologic: Reports: No Symptoms ED EXAM, GI/ABD - Physical Exam Exam: See Below Exam Limited By: No Limitations General Appearance: Alert, WD/WN, No Apparent Distress Head: Atraumatic, Normocephalic Neck: Normal Inspection, Supple, Non-Tender, Full Range of Motion Respiratory/Chest: No Respiratory Distress, Lungs Clear, Normal Breath Sounds, No Accessory Muscle Use, Chest Non-Tender Cardiovascular: Normal Peripheral Pulses, Regular Rate, Rhythm, No Edema, No Gallop, No JVD, No Murmur, No Rub Back Exam: Normal Inspection, Full Range of Motion, NT Extremities: Normal Inspection, Normal Range of Motion, Non-Tender, Normal C apillary Refill, No Pedal Edema Neurological: Alert, Oriented, CN II-XII Intact, Normal Cognition, Normal Gait, No Motor/Sensory Deficits Psychiatric: Normal Affect, Normal Mood Skin Exam: Warm, Dry, Intact, Normal Color, No Rash Lymphatic: No Adenopathy Course - Vital Signs Last Recorded V/S: Last Vital Signs Temp 97.7 F 07/24/21 06:25 Pulse 65 07/24/21 06:25 Resp 16 07/24/21 06:25 BP 113/69 07/24/21 06:25 Pulse Ox 97 07/24/21 06:25 - Orders/Labs/Meds Orders: Active Orders 24 hr Category Date Time Status KUB [Abdomen 1V Flat] [CR] Stat Exams 07/24/21 06:56 Ordered UA W/SHELBY RFLX IF INDICATED [URIN] Stat Lab 07/24/21 07:15 Results Labs: Laboratory Tests 07/24/21 Range/Units 07:15 Urine Color Yellow (YELLOW) Urine Appearance Clear (CLEAR) Urine pH 5.5 (5.0-9.0) Ur Specific [place] 1.015 (1.005-1.030) Urine Protein Negative (NEGATIVE) mg/dL Urine Glucose (UA) Negative (NEGATIVE) mg/dL Urine Ketones Negative (NEGATIVE) mg/dL Urine Occult Blood Negative (NEGATIVE) Urine Nitrite Negative (NEGATIVE) Urine Bilirubin Negative (NEGATIVE) Urine Urobilinogen 0.2 (0.2-1.0) E.U./dL Ur Leukocyte Esterase Negative (NEGATIVE) - Radiology Interpretation Free Text/Narrative:: ABDOMINAL SERIES- STOOL WITH GAS WITHOUT OBSTRUCTION Departure - Departure Time of Disposition: 08:03 Disposition: Home, Self-Care 01 Condition: Good Clinical Impression: Constipation Qualifiers: Constipation type: unspecified constipation type Qualified Code(s): K59.00 - Constipation, unspecified - Discharge Information Prescriptions: polyethylene glycoL 3350 [MiraLAX] 17 gm PO DAILY #30 packet Instructions: Chronic Constipation Forms: ED Department Discharge Additional Instructions: 1. DISCHARGE HOME 2. MIRALAX DAILY 3. MIRALAX UP TO 3X/DAY UNTIL STOOLS RETURN TO NORMAL 4. FOLLOW UP IN CLINIC FOR FURTHER EVALUATION AND TREATMENT 5. INCREASE ACTIVITY 6. INCREASE FLUID CONSUMPTION Sepsis Event Note (ED) - Evaluation Sepsis Screening Result: No Definite Risk - Focused Exam Vital Signs: Vital Signs Temp Pulse Resp BP Pulse Ox 07/24/21 06:25 97.7 F 65 16 113/69 97 - My Orders Last 24 Hours: My Active Orders 07/24/21 06:56 KUB [Abdomen 1V Flat] [CR] Stat 07/24/21 07:15 UA W/SHELBY RFLX IF INDICATED [URIN] Stat - Assessment/Plan Last 24 Hours: My Active Orders 07/24/21 06:56 KUB [Abdomen 1V Flat] [CR] Stat 07/24/21 07:15 UA W/SHELBY RFLX IF INDICATED [URIN] Stat Assessment:: 1. CONSTIPATION-RETURN VISIT Plan: 1. DISCHARGE HOME 2. MIRALAX DAILY 3. MIRALAX UP TO 3X/DAY UNTIL STOOLS RETURN TO NORMAL 4. FOLLOW UP IN CLINIC FOR FURTHER EVALUATION AND TREATMENT 5. INCREASE ACTIVITY 6. INCREASE FLUID CONSUMPTION
--- NOTE | 2021-07-24 08:04 | CR ---
[id number] RAD/RAD Abdomen Flat Plate 1V EXAM: RAD Abdomen Flat Plate 1V INDICATION: PAIN. COMPARISON: April 09, 2021. DISCUSSION: Mild gaseous distention of the colon is nonspecific, but could be seen with an ileus. No small bowel dilation, free air or pneumatosis. Moderate hiatus hernia without significant interval change. Metallic device overlying the hiatus hernia and left lower chest. Coronary artery stent. Convex right curvature centered in the lumbar spine. Surgical material overlying the left pelvis. IMPRESSION: 1. Mild gaseous distention of the transverse colon is nonspecific, but could be seen with an ileus. Xu Guy MD 07/24/21 0803 Thank you for allowing us to participate in the care of your patient.
== END 2021-07-24 08:10 | disposition home or self-care (01) ==
LOC: KA.ED 06:20
DX: K59.00 Constipation, unspecified (principal); E78.00 Pure hypercholesterolemia, unspecified; K21.9 Gastro-esophageal reflux disease without esophagitis; M19.90 Unspecified osteoarthritis, unspecified site; D50.9 Iron deficiency anemia, unspecified; Z79.01 Long term (current) use of anticoagulants; Z79.02 Long term (current) use of antithrombotics/antiplatelets; Z79.899 Other long term (current) drug therapy
CPT/HCPCS: 74018; 81003; 99283

== ENCOUNTER 2023-09-26 12:02 | Emergency (ER) | payer MEDICARE, OTHER | END 2023-09-26 14:25 | disposition home or self-care (01) | LOC: KA.ED 12:02 | DX: S16.1XXA Strain of muscle, fascia and tendon at neck level, initial encounter (principal); S00.03XA Contusion of scalp, initial encounter; E78.00 Pure hypercholesterolemia, unspecified; K21.9 Gastro-esophageal reflux disease without esophagitis; Z95.5 Presence of coronary angioplasty implant and graft; Z79.899 Other long term (current) drug therapy; W10.1XXA Fall (on)(from) sidewalk curb, initial encounter; Y92.480 Sidewalk as the place of occurrence of the external cause | CPT/HCPCS: 70450; 72125; 99283; C1758 ==